=== PATIENT | female | born 1990 | race Hispanic/Latino ===

== ENCOUNTER 2016-11-26 02:48 | Emergency (ER) | payer OTHER ==
[~2016-11-26] VITALS: Ht 165.1 cm; Wt 85.7 kg
[2016-11-26] MEDS ORDERED: birth control PO (03:02)
[2016-11-26 05:07] LABS: BASO % 0.5 % (0.0-1.0); EOS % 0.4 % (0.0-3.0); LARGE UNSTAINED CELL # 0.1 K/mm3 (0.0-0.4); LARGE UNSTAINED CELL % 1.1 % (0.0-4.0); LYMPH % 19.3 % (24.0-44.0); MEAN CORPUSCULAR HEMOGLOBIN 27.5 pg (27.0-33.0); MEAN CORPUSCULAR HGB CONC 33.2 g/dl (32.0-36.5); MEAN CORPUSCULAR VOLUME 82.8 fl (80.0-96.0); MONO # 0.3 K/mm3 (0.0-0.8); MONO % 2.9 % (0.0-5.0); NEUTROPHILS # 7.5 K/mm3 (1.8-7.7); NEUTROPHILS % 75.7 % (36.0-66.0); PLATELET COUNT, AUTOMATED 358 k/mm3 (150-450); RED CELL DISTRIBUTION WIDTH 13.4 % (11.5-14.5); WHITE BLOOD COUNT 9.9 K/mm3 (4.0-10.0)
[2016-11-26 05:16] LABS: INR 0.97
[2016-11-26 05:39] LABS: ANION GAP 10 MEQ/L (8-16); BLOOD UREA NITROGEN 6 MG/DL (7-18); CALCIUM LEVEL 8.5 MG/DL (8.5-10.1); CARBON DIOXIDE LEVEL 26 MEQ/L (21-32); CHLORIDE LEVEL 107 MEQ/L (98-107); GLOMERULAR FILTRATION RATE > 60.0 (>60); GLUCOSE, FASTING 100 MG/DL (70-105); POTASSIUM SERUM 3.5 MEQ/L (3.5-5.1); SODIUM LEVEL 143 MEQ/L (136-145)
[2016-11-26 05:44] LABS: THYROXINE (T4) 16.2 UG/DL (4.5-12.0)
[2016-11-26] MEDS ORDERED: ISOVUE-370 76% 100ML VIAL (Q9967) As Ordered ONE (05:53)
--- NOTE | 2016-11-26 06:40 | REPUSA ---
CLINICAL HISTORY: Pain, exclude PE. TECHNIQUE: Multiple incremental axial, coronal and oblique images are obtained from the thoracic inle t to the upper abdomen. Intravenous contrast material was administered as per pulmonary embolism prot ocol. COMMENTS: There is excellent opacification of pulmonary arterial system without evidence for pulmonary embolism . Aorta is of normal caliber without evidence for dissection or aneurysm. There is no evidence of pleural or parenchymal mass. There are no pleural effusions. There is no evid ence of hilar or mediastinal lymphadenopathy. The heart and great vessels are within normal limits. Images of the upper abdomen demonstrate no evidence of adrenal mass. The bony structures are free of lytic or blastic lesions. IMPRESSION: No evidence for pulmonary embolism. Thank you for your kind referral of this patient.
[2016-11-26 06:51] VITALS: BP 117/56
--- NOTE | 2016-11-26 11:07 | ECGEPIP ---
Stationary ECG Study [facility] - ED Test Date: 2016-11-26 Pat Name: GREGORY LAWSON Department: Room: - Gender: F Web Design Specialist: maria e : 1990 Requested By: OSIRIS DOWNEY Order Number: [id number] Reading MD: Meli Root Measurements Intervals [place] Rate: 108 P: 56 [place]: 129 QRS: 30 QRSD: 94 T: 19 QT: 338 QTc: 454 Interpretive Statements SINUS TACHYCARDIA ABNORMAL RHYTHM ECG SIMILAR 07/25/15 Electronically Signed On 11-26-2016 11:06:46 EDT by Meli Root
== END 2016-11-26 06:51 | disposition home or self-care (01) ==
LOC: M ED 03:57
DX: F41.1 Generalized anxiety disorder (principal); F41.0 Panic disorder [episodic paroxysmal anxiety]; F17.200 Nicotine dependence, unspecified, uncomplicated; Z79.3 Long term (current) use of hormonal contraceptives; R94.31 Abnormal electrocardiogram [ECG] [EKG]
CPT/HCPCS: 36415; 71275; 80048; 82550; 82553; 84436; 84443; 84479; 85025; 85610; 85730; 93005; 99283; Q9967

== ENCOUNTER → 2017-03-10 | Outpatient (CLI) | payer OTHER ==
[~2017-03-10] MED LIST: BENT20TA PO; FLUO20CA19; HYDR50TA70; JULE1TAB; NORCOTAB PO; birth control PO
--- NOTE | 2017-03-10 14:16 | REP ---
LEFT KNEE SERIES, FIVE VIEWS: There is no evidence of an acute fracture, dislocation or intrinsic bone disease. The joint spaces appear unremarkable. There is no evidence of a joint effusion. IMPRESSION: No fracture or dislocation. Signed by Bubba Chandra MD 03/10/2017 05:05 P
== END ==
LOC: M LRY 13:22
PROVIDERS: ATTEND Family Medicine
DX: M25.562 Pain in left knee (principal)

== ENCOUNTER 2017-03-17 18:28 | Emergency (ER) | payer OTHER ==
[~2017-03-17] VITALS: Ht 165.1 cm; Wt 78.6 kg
[~2017-03-17 18:28] MED LIST changes: -BENT20TA PO; -FLUO20CA19; -HYDR50TA70; -JULE1TAB; -NORCOTAB PO
[2017-03-17] MEDS ORDERED: FLUO20CA19 (18:35)
[2017-03-17] MEDS ORDERED: HYDR50TA70 (18:35)
[2017-03-17] MEDS ORDERED: JULE1TAB (18:35)
[2017-03-17] MEDS ORDERED: ONDANSETRON 4MG/2ML VIAL (J2405) IV ONE (19:00)
[2017-03-17] MEDS ORDERED: MORPHINE 2 MG/ML 1ML SYRINGE IV ONE (19:00)
[2017-03-17 19:36] LABS: BASO % 0.2 % (0.0-1.0); EOS # 0.1 K/mm3 (0.0-0.50); EOS % 1.4 % (0.0-3.0); LARGE UNSTAINED CELL # 0.1 K/mm3 (0.0-0.4); LARGE UNSTAINED CELL % 1.1 % (0.0-4.0); LYMPH # 2.4 K/mm3 (1.5-6.5); LYMPH % 22.3 % (24.0-44.0); MEAN CORPUSCULAR HEMOGLOBIN 28.3 pg (27.0-33.0); MEAN CORPUSCULAR HGB CONC 33.5 g/dl (32.0-36.5); MEAN CORPUSCULAR VOLUME 84.4 fl (80.0-96.0); MONO # 0.5 K/mm3 (0.0-0.8); MONO % 4.9 % (0.0-5.0); NEUTROPHILS # 7.2 K/mm3 (1.8-7.7); PLATELET COUNT, AUTOMATED 327 k/mm3 (150-450); RED CELL DISTRIBUTION WIDTH 13.9 % (11.5-14.5); WHITE BLOOD COUNT 10.3 K/mm3 (4.0-10.0)
[2017-03-17 19:49] LABS: ALBUMIN 3.8 GM/DL (3.2-5.2); ALBUMIN/GLOBULIN RATIO 0.88 (1.00-1.93); ALKALINE PHOSPHATASE 82 U/L (45-117); ALT/SGPT 21 U/L (12-78); ANION GAP 8 MEQ/L (8-16); AST/SGOT 15 U/L (15-37); BILIRUBIN,DIRECT < 0.1 MG/DL (0.0-0.2); BILIRUBIN,TOTAL 0.1 MG/DL (0.2-1.0); BLOOD UREA NITROGEN 9 MG/DL (7-18); CALCIUM LEVEL 9.5 MG/DL (8.5-10.1); CARBON DIOXIDE LEVEL 27 MEQ/L (21-32); CHLORIDE LEVEL 105 MEQ/L (98-107); CREATININE FOR GFR 0.69 MG/DL (0.55-1.02); GLOMERULAR FILTRATION RATE > 60.0 (>60); GLUCOSE, FASTING 90 MG/DL (70-105); POTASSIUM SERUM 3.6 MEQ/L (3.5-5.1); SODIUM LEVEL 140 MEQ/L (136-145); TOTAL PROTEIN 8.1 GM/DL (6.4-8.2)
--- NOTE | 2017-03-17 19:50 | REPUSA ---
CLINICAL HISTORY: Abdominal pain. TECHNIQUE: Realtime sonographic images were obtained in multiple projections. COMMENTS: The liver is of normal size, parenchyma demonstrates normal echogenicity. No discrete hepatic mass is seen. There is no intra or extrahepatic biliary ductal dilatation. CBD measures 3 mm. The gallbladder is ma rkedly distended without evidence of calculi. The gallbladder wall is not thickened (2mm) and there i s no pericholecystic fluid. There is no abdominal ascites. The right kidney measures 11.1 cm, free of hydronephrosis. IMPRESSION: Markedly distended gallbladder without cholelithiasis. Otherwise unremarkable study. If clinically warranted consider follow-up with hepatobiliary scan Thank you for your kind referral of this patient.
[2017-03-17] MEDS ORDERED: BENT20TA PO (20:16)
[2017-03-17] MEDS ORDERED: NORCOTAB PO (20:29)
[2017-03-17] MEDS ORDERED: NORCO, ANEXSIA 5/325MG TABLET (HYDROcodone/ACETAMINOPHEN) PO ONE (20:30)
[2017-03-17 20:31] VITALS: BP 163/70
== END 2017-03-17 20:43 | disposition home or self-care (01) ==
LOC: M ED 18:28
DX: K80.70 Calculus of gallbladder and bile duct without cholecystitis without obstruction (principal); Z79.899 Other long term (current) drug therapy
CPT/HCPCS: 76705; 80048; 80076; 81001; 83690; 85025; 96374; 96375; 99283; J2405

== ENCOUNTER 2017-06-17 19:27 | Emergency (ER) | payer OTHER ==
[~2017-06-17] VITALS: Ht 162.6 cm; Wt 78.6 kg
[~2017-06-17 19:27] MED LIST changes: +BENT20TA PO; +FLUO20CA19; +HYDR50TA70; +JULE1TAB; +NORCOTAB PO
[2017-06-17 20:21] LABS: BASO % 0.3 % (0.0-1.0); EOS # 0.1 10^3/uL (0.0-0.50); EOS % 0.8 % (0.0-3.0); IMMATURE GRANULOCYTE % 0.4 % (0-0); LYMPH # 3.3 10^3/uL (1.5-6.5); LYMPH % 25.4 % (24.0-44.0); MEAN CORPUSCULAR HEMOGLOBIN 28.2 pg (27.0-33.0); MEAN CORPUSCULAR HGB CONC 32.7 g/dl (32.0-36.5); MEAN CORPUSCULAR VOLUME 86.4 fl (80.0-96.0); MONO # 0.9 10^3/uL (0.0-0.8); MONO % 6.8 % (0.0-5.0); NEUTROPHILS # 8.7 10^3/uL (1.8-7.7); NEUTROPHILS % 66.3 % (36.0-66.0); PLATELET COUNT, AUTOMATED 313 10^3/uL (150-450); RED CELL DISTRIBUTION WIDTH 13.7 % (11.5-14.5); WHITE BLOOD COUNT 13.1 10^3/uL (4.0-10.0)
[2017-06-17 20:25] LABS: CONTROL LINE UCG INT CTR LINE PRESENT
[2017-06-17 20:47] LABS: ALBUMIN 3.8 GM/DL (3.2-5.2); ALBUMIN/GLOBULIN RATIO 1.15 (1.00-1.93); ALKALINE PHOSPHATASE 68 U/L (45-117); ALT/SGPT 19 U/L (12-78); ANION GAP 7 MEQ/L (8-16); AST/SGOT 10 U/L (7-37); BILIRUBIN,TOTAL 0.1 MG/DL (0.2-1.0); BLOOD UREA NITROGEN 8 MG/DL (7-18); CALCIUM LEVEL 8.8 MG/DL (8.5-10.1); CARBON DIOXIDE LEVEL 27 MEQ/L (21-32); CHLORIDE LEVEL 106 MEQ/L (98-107); CREATININE FOR GFR 0.68 MG/DL (0.55-1.02); GLOMERULAR FILTRATION RATE > 60.0 (>60); GLUCOSE, FASTING 81 MG/DL (70-105); POTASSIUM SERUM 3.9 MEQ/L (3.5-5.1); SODIUM LEVEL 140 MEQ/L (136-145); TOTAL PROTEIN 7.1 GM/DL (6.4-8.2)
[2017-06-17] MEDS ORDERED: ZOFR4TAB3 PO (21:07)
[2017-06-17] MEDS ORDERED: ONDANSETRON 4 MG TAB (S0181) PO ONE (21:15)
[2017-06-17 21:16] VITALS: BP 124/67
== END 2017-06-17 21:39 | disposition home or self-care (01) ==
LOC: M ED 19:27
DX: R11.10 Vomiting, unspecified (principal); E78.5 Hyperlipidemia, unspecified; Z79.899 Other long term (current) drug therapy

== ENCOUNTER → 2017-06-28 | Outpatient (REF) | payer OTHER ==
[~2017-06-28] MED LIST changes: +ZOFR4TAB3 PO
== END ==
LOC: M SFHCLERA 08:09
PROVIDERS: ATTEND Family Medicine
DX: N89.8 Other specified noninflammatory disorders of vagina (principal)

== ENCOUNTER → 2018-01-03 | Outpatient (REF) | payer SELFPAY | LOC: M LAB REF 13:06 | DX: J02.9 Acute pharyngitis, unspecified (principal) ==

== ENCOUNTER → 2019-01-12 | Outpatient (REF) | payer BC ==
[~2019-01-12] MED LIST changes: +HYDR-3715 PO; -NORCOTAB PO; +ZOFR4TAB14 PO; -ZOFR4TAB3 PO
[2019-01-12 13:27] LABS: ALBUMIN 3.4 GM/DL (3.2-5.2); ALT/SGPT 16 U/L (12-78); BILIRUBIN,TOTAL < 0.1 MG/DL (0.2-1.0); BLOOD UREA NITROGEN 13 MG/DL (7-18); CALCIUM LEVEL 9.1 MG/DL (8.5-10.1); CARBON DIOXIDE LEVEL 25 MEQ/L (21-32); CHLORIDE LEVEL 106 MEQ/L (98-107); CHOLESTEROL LEVEL 225 MG/DL (<200); CHOLESTEROL RISK RATIO 3.214 (<5); CREATININE FOR GFR 0.67 MG/DL (0.55-1.30); FREE T4 0.97 NG/DL (0.76-1.46); GLOMERULAR FILTRATION RATE > 60.0 (>60); GLUCOSE, FASTING 83 MG/DL (70-100); HDL CHOLESTEROL 70 MG/DL (>40); LDL CHOLESTEROL 132 MG/DL (<100); NON-HDL-C 155 MG/DL; POTASSIUM SERUM 4.4 MEQ/L (3.5-5.1); SODIUM LEVEL 140 MEQ/L (136-145); TOTAL PROTEIN 7.8 GM/DL (6.4-8.2); TRIGLYCERIDES LEVEL 114 MG/DL (<150)
== END ==
LOC: M SFHCPLAZ 09:41
PROVIDERS: ATTEND Family Medicine
DX: Z13.220 Encounter for screening for lipoid disorders (principal); Z13.1 Encounter for screening for diabetes mellitus; R63.5 Abnormal weight gain

== ENCOUNTER → 2019-08-19 | Outpatient (REF) | payer BC ==
[2019-08-19 14:09] LABS: INFLUENZA A AMPLIFICATION NEGATIVE (NEGATIVE); INFLUENZA B AMPLIFICATION POSITIVE (NEGATIVE)
== END ==
LOC: M LAB REF 13:12
PROVIDERS: ATTEND Physician Assistant Medical
DX: R50.9 Fever, unspecified (principal)

== ENCOUNTER 2019-09-28 05:32 | Emergency (ER) | payer BC ==
[~2019-09-28] VITALS: Ht 162.6 cm; Wt 100.2 kg
[~2019-09-28 05:32] MED LIST changes: -FLUO20CA19; +FLUO20CA22
[2019-09-28] MEDS ORDERED: FLUTISP (05:43)
[2019-09-28] MEDS ORDERED: DESO1TAB26 (05:43)
[2019-09-28 06:43] LABS: BASO % 0.4 % (0.0-1.0); EOS # 0.2 10^3/uL (0.0-0.5); EOS % 2.5 % (0.0-3.0); HEMOGLOBIN 11.5 g/dl (12.0-15.5); LYMPH # 2.9 10^3/uL (1.5-5.0); MEAN CORPUSCULAR HEMOGLOBIN 26.9 pg (27.0-33.0); MEAN CORPUSCULAR HGB CONC 31.9 g/dl (32.0-36.5); MEAN CORPUSCULAR VOLUME 84.1 fl (80.0-96.0); MONO # 0.5 10^3/uL (0.0-0.8); MONO % 6.1 % (0.0-5.0); NEUTROPHILS # 3.9 10^3/uL (1.5-8.5); NEUTROPHILS % 51.7 % (36.0-66.0); PLATELET COUNT, AUTOMATED 369 10^3/uL (150-450); RED BLOOD COUNT 4.28 10^6/uL (4.00-5.40); WHITE BLOOD COUNT 7.5 10^3/uL (4.0-10.0)
[2019-09-28 07:04] LABS: HCG, SERUM QUALITATIVE NEGATIVE (NEGATIVE)
[2019-09-28 07:10] LABS: ALBUMIN 3.3 GM/DL (3.2-5.2); ALT/SGPT 17 U/L (12-78); BILIRUBIN,DIRECT 0.1 MG/DL (0.0-0.2); BILIRUBIN,TOTAL 0.3 MG/DL (0.2-1.0); BLOOD UREA NITROGEN 6 MG/DL (7-18); CALCIUM LEVEL 8.6 MG/DL (8.5-10.1); CARBON DIOXIDE LEVEL 26 MEQ/L (21-32); CHLORIDE LEVEL 109 MEQ/L (98-107); CK-MB VALUE MASS < 1.0 NG/ML (<3.6); CPK CREATINE PHOSPHOKINASE 89 U/L (26-192); CREATININE FOR GFR 0.62 MG/DL (0.55-1.30); FREE T4 1.11 NG/DL (0.76-1.46); GLOMERULAR FILTRATION RATE > 60.0 (>60); GLUCOSE, FASTING 94 MG/DL (70-100); LIPASE 114 U/L (73-393); MB/CK RELATIVE INDEX 1.12 (< OR =4); POTASSIUM SERUM 3.8 MEQ/L (3.5-5.1); SODIUM LEVEL 139 MEQ/L (136-145); TROPONIN I < 0.02 NG/ML (< 0.10)
[2019-09-28 07:45] VITALS: BP 123/56
--- NOTE | 2019-09-28 08:47 | REP ---
Portable chest x-ray: Sitting AP view. History: Chest pain. Findings: The lungs are well inflated and clear. Pleural angles are sharp. Heart size is normal. Pulmonary vasculature is not increased. No significant bony abnormality is seen. Impression: No active disease. Electronically Signed by Gino Ashraf MD 09/28/2019 08:38 A
--- NOTE | 2019-09-29 18:27 | ECGEPIP ---
[facility] - ED Test Date: 2019-09-28 Pat Name: GREGORY LAWSON Department: Room: - Gender: Female New Media Strategist: DENISE : 1990 Requested By: TOSIN Castellanos Order Number: [id number] Reading MD: Meli Root Measurements Intervals [place] Rate: 75 P: 39 [place]: 136 QRS: 29 QRSD: 100 T: 7 QT: 386 QTc: 432 Interpretive Statements SINUS RHYTHM DECREASED RATE 11/26/16 Electronically Signed on 09-29-2019 18:27:35 EST by Meli Root
== END 2019-09-28 07:58 | disposition home or self-care (01) ==
LOC: M ED 05:32
DX: R07.9 Chest pain, unspecified (principal); F41.0 Panic disorder [episodic paroxysmal anxiety]; Z79.899 Other long term (current) drug therapy

== ENCOUNTER 2019-10-05 16:20 | Emergency (ER) | payer BC ==
[~2019-10-05] VITALS: Ht 162.6 cm; Wt 100.1 kg
[~2019-10-05 16:20] MED LIST changes: +DESO1TAB26; +FLUTISP
[2019-10-05] MEDS ORDERED: ONDANSETRON 4 MG ORAL DISINTEGRATING TAB (Q0162 PER 1MG) PO ONE (17:15)
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
[2019-10-05 17:56] VITALS: BP 124/78
== END 2019-10-05 17:57 | disposition home or self-care (01) ==
LOC: M ED 16:20
DX: S00.03XA Contusion of scalp, initial encounter (principal); W22.8XXA Striking against or struck by other objects, initial encounter; Y92.099 Unspecified place in other non-institutional residence as the place of occurrence of the external cause; Y93.9 Activity, unspecified; Y99.9 Unspecified external cause status; R51 Headache; E78.5 Hyperlipidemia, unspecified; F41.0 Panic disorder [episodic paroxysmal anxiety]; Z79.3 Long term (current) use of hormonal contraceptives; Z79.899 Other long term (current) drug therapy
CPT/HCPCS: 70450; 99283; Q0162

== ENCOUNTER → 2019-10-26 | Outpatient (REF) | payer BC ==
[2019-10-26 13:35] LABS: HEMATOCRIT 42.3 % (36.0-47.0); HEMOGLOBIN 13.3 g/dl (12.0-15.5); MEAN CORPUSCULAR HGB CONC 31.4 g/dl (32.0-36.5); PLATELET COUNT, AUTOMATED 429 10^3/uL (150-450); RED BLOOD COUNT 4.92 10^6/uL (4.00-5.40)
[2019-10-26 13:40] LABS: ALBUMIN 3.8 GM/DL (3.2-5.2); ALT/SGPT 21 U/L (12-78); BILIRUBIN,TOTAL 0.3 MG/DL (0.2-1.0); BLOOD UREA NITROGEN 12 MG/DL (7-18); CALCIUM LEVEL 9.2 MG/DL (8.5-10.1); CARBON DIOXIDE LEVEL 27 MEQ/L (21-32); CHLORIDE LEVEL 108 MEQ/L (98-107); CREATININE FOR GFR 0.69 MG/DL (0.55-1.30); FERRITIN 39 NG/ML (8-252); GLOMERULAR FILTRATION RATE > 60.0 (>60); GLUCOSE, FASTING 90 MG/DL (70-100); IRON (FE) 55 UG/DL (50-170); PERCENT SATURATION 12.8 % (13.2-45.0); POTASSIUM SERUM 4.2 MEQ/L (3.5-5.1); SODIUM LEVEL 141 MEQ/L (136-145); TOTAL IRON BINDING CAPACITY 430 UG/DL (250-450); TOTAL PROTEIN 8.1 GM/DL (6.4-8.2)
== END ==
LOC: M SFHCPLAZ 10:33
PROVIDERS: ATTEND Family Medicine
DX: D64.9 Anemia, unspecified (principal); K52.9 Noninfective gastroenteritis and colitis, unspecified

== ENCOUNTER → 2019-11-09 | Outpatient (REF) | payer BC ==
[2019-11-09 15:55] LABS: AMORPHOUS SEDIMENT LARGE (NEGATIVE); APPEARANCE, URINE TURBID (CLEAR); BACTERIA, URINE AUTO NEGATIVE (NEGATIVE); BILIRUBIN, URINE AUTO NEGATIVE (NEGATIVE); BLOOD, URINE BLOOD 1+ (NEGATIVE); COLOR, URINE YELLOW (YELLOW); GLUCOSE, URINE (UA) AUTO NEGATIVE (NEGATIVE); KETONE, URINE AUTO 1+ mg/dL (NEGATIVE); LEUKOCYTE ESTERASE, URINE AUTO NEGATIVE (NEGATIVE); MUCUS, URINE SMALL (NEGATIVE); NITRITE, URINE AUTO NEGATIVE (NEGATIVE); PROTEIN, URINE AUTO 1+ mg/dL (NEGATIVE); RBC, URINE AUTO 0 /HPF (0-3); SQUAMOUS EPITHELIAL CELL UR AU 0 /HPF (0-6); UROBILINOGEN, URINE AUTO 0.2 mg/dL (0.0-2.0); WBC, URINE AUTO 0 /HPF (0-3)
== END ==
LOC: M SFHCPLAZ 15:23
PROVIDERS: ATTEND Family Medicine
DX: R30.0 Dysuria (principal)

== ENCOUNTER → 2020-06-30 | Outpatient (CLI) | payer SELFPAY | LOC: M LABSMTC 12:08 | PROVIDERS: ATTEND Pediatrics | DX: Z20.828 Contact with and (suspected) exposure to other viral communicable diseases (principal) ==

== ENCOUNTER → 2020-08-01 | Outpatient (REF) | payer BC | LOC: M LAB REF 13:15 | PROVIDERS: ATTEND Family Medicine | DX: D49.2 Neoplasm of unspecified behavior of bone, soft tissue, and skin (principal) ==

== ENCOUNTER → 2020-08-10 | Outpatient (CLI) | payer SELFPAY | LOC: M LABSMTC 11:18 | PROVIDERS: ATTEND Pediatrics | DX: Z20.822 Contact with and (suspected) exposure to COVID-19 (principal) ==

== ENCOUNTER → 2020-09-08 | Outpatient (REF) | payer BC ==
[2020-09-08 18:41] LABS: HEMATOCRIT 39.3 % (36.0-47.0); HEMOGLOBIN 12.5 g/dl (12.0-15.5); MEAN CORPUSCULAR HEMOGLOBIN 27.7 pg (27.0-33.0); MEAN CORPUSCULAR HGB CONC 31.8 g/dl (32.0-36.5); MEAN CORPUSCULAR VOLUME 87.1 fl (80.0-96.0); PLATELET COUNT, AUTOMATED 316 10^3/uL (150-450); RED BLOOD COUNT 4.51 10^6/uL (4.00-5.40); WHITE BLOOD COUNT 7.2 10^3/uL (4.0-10.0)
== END ==
LOC: M SFHCPLAZ 14:05
PROVIDERS: ATTEND Family Medicine
DX: Z01.818 Encounter for other preprocedural examination (principal)

== ENCOUNTER → 2020-09-13 | Outpatient (CLI) | payer BC ==
[~2020-09-13] MED LIST changes: +FLON1SPR; +HYDR50TA70 PO; +ISIBLOOM PO; +LAMI1TAB7 PO
== END ==
LOC: M LABSMTC 08:44
PROVIDERS: ATTEND Anesthesiology
DX: Z01.812 Encounter for preprocedural laboratory examination (principal); Z20.822 Contact with and (suspected) exposure to COVID-19

== ENCOUNTER 2020-09-18 09:07 | Day surgery (SDC) | payer BC ==
[~2020-09-18] VITALS: Ht 165.1 cm; Wt 83.0 kg
[~2020-09-18 09:07] MED LIST changes: +LIDOCAINE 1% MDV 20ML VIAL SQ PRN; +LR 1,000 ML IV ONE; +ceFAZolin SOD 1 GM in D5W MINI-BAG PLUS 50 ML IV ONE
--- OUTSIDE RECORDS SUMMARY | 2020-09-18 09:13 | CCD ---
Author Author [facility] Organization [facility] Address Unknown Phone Unavailable Care Team Providers Care Bottom Man Name Role Phone Phoebe Schmidt Unavailable PROBLEMS Type Condition ICD9-CM Code [id number] Code Onset Dates Condition S tatus W/U Status Risk SNOMED Code Notes Problem Irritable bowel syndrome with diarrhea K58.0 A ctive confirmed 490831146 Problem Non-seasonal allergic rhinitis, unspecified trigger J30.89 Active confirmed 93124778 Problem Intermittent explosive disorder F63.81 Active confi rmed 02140644 Problem Anxiety F41.9 Active confirmed 38038696 ALLERGIES Allergen (clinical drug ingredient) Drug/Non Drug Allergy do cumented on EMR Reaction Allergy Type Onset Date Status Seasonale watery eyes sneezing nasel congestion Drug Adolfo rgy Active ENCOUNTERS from 1990 to 2020-09-10 Encounter Location Date Provider Diagnosis [address] [address] Aug, Phoebe Schmidt Pre-op evaluation Z01.818 ; Hypertrophy of breast N62 ; Anxiety F41.9 and Non-seasonal allergic rhinitis, unspecified trigger J30.89 IMMUNIZATIONS No Information SOCIAL HISTORY Tobacco Use: Social History Observation Description Date Details (start date - stop date) Never Smoker Sex Assigned At : Social History Observation Description Sex Assigned At Unknown Audit Question Answer Notes Total Score: 1 Interpretation: Alcohol Education Domestic Violence: Question Answer Notes Status: Single Sexual Hx: Question Answer Notes Had sex in the last 12 months (vaginal, oral, or anal)? Yes LMP: 12/17/2018 Have you ever had an STD? No with Women only Use protection? No Drug and Alcohol Question Answer Notes Total Score: 0 Interpretation: No problems reported Tobacco Use: Question Answer Notes Are you a: never smoker REASON FOR REFERRAL No Information VITAL SIGNS Weight 183 lbs Aug, Height 65 in Aug, BMI 30.45 kg/m2 Aug, Heart Rate 118 /min Aug, Respiratory Rate 20 /min Aug, Temperature 96.8 degrees Fahrenheit Aug, Oximetry 99 Aug, Blood pressure systolic 120 mm Hg Aug, Blood pressure diastolic 70 mm Hg Aug, MEDICATIONS Medication SIG (Take, Route, Frequency, Duration) Notes Start Da te End Date Status Cetirizine HCl 10 MG 1 tablet Orally Once a day May, Active Emoquette 0.15-30 MG-MCG 1 tablet Orally Once a day Active Fluticasone Propionate 50 MCG/ACT 1 spray in each nostril Nasall y Once a day Active Zaditor 0.025 % 1 drop into affected eye Ophthalmic Twice a day May, Active Fluconazole 150 MG 1 tablet Orally for 1 days Jul, Not-Taking Lamictal 100 MG 1 tablet Orally bid Active HydrOXYzine HCl 50 MG 1 tablet as needed Orally every 6 hrs Oct, Active PROCEDURES No Information RESULTS Component Value Reference Range CBC - Complete Blood Count Reviewed date:09/09/2020 07:10:25 Interpretation: Performing Lab:[facility] [address] [facility] [address] , ,[place] [address] WHITE BLOOD COUNT 7.2 4.0-10.0 RED BLOOD COUNT 4.51 4.00-5.40 HEMOGLOBIN 12.5 12.0-15.5 HEMATOCRIT 39.3 36.0-47.0 MEAN CORPUSCULAR VOLUME 87.1 80.0-96.0 MEAN CORPUSCULAR HEMOGLOBIN 27.7 27.0-33.0 MEAN CORPUSCULAR HGB CONC 31.8 32.0-36.5 RED CELL DISTRIBUTION WIDTH 13.4 11.5-14.5 PLATELET COUNT, AUTOMATED 316 150-450 REASON FOR VISIT Preop clearance for breast reduction at [facility] by Dr. Valdovinos on 09/18/2020; surgeon's fax [phone], diagnosis code N62 MEDICAL (GENERAL) HISTORY Type Description Date Medical History Anxiety, intermittent explosive disorder - [facility] Medical History Environmental allergies Medical History PMS with diarrhea and vomiting - on OCPs Surgical History Appendectomy Surgical History Tonsillectomy with adenoidectomy Hospitalization History surgery related Goals Section No Information Health Concerns No Information MEDICAL EQUIPMENT No Information MENTAL STATUS No Information FUNCTIONAL STATUS No Information ASSESSMENTS Encounter Date Diagnosis Assessment Notes Treatment Notes Treatm ent Clinical Notes Aug, Pre-op evaluation (ICD-10 - Z01.818) I discussed the risks vs. benefits of surgery with the patient in generic terms. I feel that the patient is at low risk for perioperative complications. The patient knows that there is always some risk with surgery and that each individual has to make a decision regarding whether the benefits of surgery outweigh the risks in order to proceed. I advised the patient to direct further questions regarding the specifics of the proposed surgical procedure and specific risks to the surgeon. At this time I feel that the patient's acute and chronic medical conditions are sufficiently optimized to proceed with surgery. - Continue all medications in the perioperative period; I counseled the patient that OCPs increase risk of DVT after surgery and she should get up and walk around her house every hour while awake to decrease risk of DVT. Aug, Hypertrophy of breast (ICD-10 - N62) Surgery is planned. Aug, Anxiety (ICD-10 - F41.9) Aug, Non-seasonal allergic rhinit is, unspecified trigger (ICD-10 - J30.89) PLAN OF TREATMENT Medication Medication Name Sig Start Date Stop Date Zaditor 0.025 % 1 drop into affected eye Ophthalmic Twice a day May, Cetirizine HCl 10 MG 1 tablet Orally Once a day May, Fluticasone Propionate 50 MCG/ACT 1 spray in each nostril Nasall y Once a day Lamictal 100 MG 1 tablet Orally bid HydrOXYzine HCl 50 MG 1 tablet as needed Orally every 6 hrs 2019 Emoquette 0.15-30 MG-MCG 1 tablet Orally Once a day Treatment Notes Assessment Notes Clinical Notes Pre-op evaluation I discussed the risk s vs. benefits of surgery with the patient in generic terms. I feel that the patient is at low risk for perioperative complications. The patient knows that there is always some risk with surgery and that each individual has to make a decision regarding whether the benefits of surgery outweigh the risks in order to proceed. I advised the patient to direct further questions regarding the specifics of the proposed surgical procedure and specific risks to the surgeon. At this time I feel that the patient's acute and chronic medical conditions are sufficiently optimized to proceed with surgery.- Continue all medications in the perioperative period; I counseled the patient that OCPs increase risk of DVT after surgery and she should get up and walk around her house every hour while awake to decrease risk of DVT. Hypertrophy of breast Surgery is planned . Next Appt Details As scheduled 10/2020 Reason: Provider Name:Phoebe Schmidt, 2020-11-12 10:30:00 AM, [facility] [place], [address], Insurance Providers Payer Name Payer Address Payer Phone Insured Name Patient Relati onship to Insured Coverage Start Date Coverage End Date BCBS YANA GARCIA PPO [id number] [facility] [address] [place] [address] GREGORY LAWSON
--- OUTSIDE RECORDS SUMMARY | 2020-09-18 09:13 | CCD | Continuity of Care Document ---
Author Author Landen JOSEPH DO Organization Unknown Address [address] [place] [address] Phone [phone] Care Team Providers Care Inspector Experimental Assembly Name Role Phone Phoebe Schmidt M.D. [facility] [phone] Problems Description No Information Available Social History Type Date Description Comments Sex Unknown ETOH Use Rarely Tobacco Use Start: Unknown Denies Smoking Smoking Status Reviewed: 02/07/19 Denies Smoking Allergies, Adverse Reactions, Alerts Description No Known Drug Allergies Medications Active Medications SIG Qnty Indications Ordering Provide r Date Emoquette 0.15-30mg-mcg Tablets 1 by mouth every day Unknown Fluticasone Propionate 50mcg/Act Suspension 2 sprays to each nostril daily Unknown Hydroxyzine HCL Unknown 0 Lamictal 100mg Tablets 1 po b id Unknown Immunizations Description No Information Available Vital Signs Date Vital Result Comment 09/08/2020 3:26pm BP Systolic 118 mmHg BP Diastolic 84 mmHg Heart Rate 80 /min Respiratory Rate 16 /min Height 64.5 inches 5'4.50" Weight 184.00 lb BMI (Body Mass Index) 31.1 kg/m2 [place] Body Weight 120 lb Weight 83.462 kg BSA (Body Surface Area) 1.90 m2 04/02/2020 1:03pm BP Systolic 128 mmHg BP Diastolic 84 mmHg Heart Rate 76 /min Respiratory Rate 16 /min Body Temperature 98.0 F Height 64.5 inches 5'4.50" Weight 189.00 lb BMI (Body Mass Index) 31.9 kg/m2 [place] Body Weight 120 lb Weight 85.730 kg BSA (Body Surface Area) 1.92 m2 Results Description No Information Available Procedures Description No Information Available Medical Devices Description No Information Available Encounters Type Date Location Provider Dx Diagnosis Office Visit 04/02/2020 1:00p [facility]astic Surgery Sapphire Joseph DO N62 Hypertrophy of breast N64.81 Ptosis of breast Assessments Date Code Description Provider 04/02/2020 N62 Hypertrophy of breast Sapphire voss DO 04/02/2020 N64.81 Ptosis of breast Sapphire Joseph DO Plan of Treatment Future Appointment(s):* 09/18/2020 10:00 am - Sapphire Joseph DO at [facility] Plastic [facility] * 09/22/2020 8:30 am - Sapphire Joseph DO at [facility] Functional Status Description No Information Available Mental Status Description No Information Available Referrals Description No Information Available
--- OUTSIDE RECORDS SUMMARY | 2020-09-18 09:13 | CCD ---
Author Author [facility] Organization [facility] Address Unknown Phone Unavailable Care Team Providers Care Medical Dir Name Role Phone Phoebe Schmidt Unavailable PROBLEMS Type Condition ICD9-CM Code [id number] Code Onset Dates Condition S tatus SNOMED Code Notes Problem Irritable bowel syndrome with diarrhea K58.0 A ctive 805651546 Problem Non-seasonal allergic rhinitis, unspecified trigger J30.89 Active 20858048 Problem Other chronic pain G89.29 Active 32581659 Problem Intermittent explosive disorder F63.81 Active 30033083 Problem Seasonal allergies J30.2 Active 037886293 Problem Anxiety F41.9 Active 23168515 ALLERGIES Allergen (clinical drug ingredient) Drug/Non Drug Allergy do cumented on EMR Reaction Allergy Type Onset Date Status Seasonale watery eyes sneezing nasel congestion Drug Adolfo rgy Active ENCOUNTERS from 1990 to 2020-07-16 Encounter Location Date Provider Diagnosis [address] [address] Jun, Phoebe Schmidt Change in skin mole D22.9 IMMUNIZATIONS No Information SOCIAL HISTORY Tobacco Use: [...] FOR REFERRAL No Information VITAL SIGNS Weight 187 lbs Jun, Height 65 in Jun, BMI 31.12 kg/m2 Jun, Heart Rate 109 /min Jun, Respiratory Rate 20 /min Jun, Temperature 98 degrees Fahrenheit Jun, Oximetry 98 Jun, Blood pressure systolic 120 mm Hg Jun, Blood pressure diastolic 70 mm Hg Jun, MEDICATIONS Medication SIG (Take, Route, Frequency, Duration) Notes Start Da te End Date Status Zaditor 0.025 % 1 drop into affected eye Ophthalmic Twice a day May, Active Fluticasone Propionate 50 MCG/ACT 1 spray in each nostril Nasall y Once a day Active HydrOXYzine HCl 50 MG 1 tablet as needed Orally every 6 hrs Oct, Active Cetirizine HCl 10 MG 1 tablet Orally Once a day for 30 day(s) May, Active Emoquette 0.15-30 MG-MCG 1 tablet Orally Once a day Active Lamictal 150 MG 1 tablet Orally Once a day Active PROCEDURES No Information RESULTS No Results REASON FOR VISIT mole MEDICAL (GENERAL) HISTORY Type Description Date Medical History Anxiety, intermittent explosive disorder - [facility] Medical History Environmental allergies Medical History PMS with diarrhea and vomiting - on OCPs Surgical History Appendectomy Surgical History Tonsillectomy with adenoidectomy Hospitalization History surgery related Goals Section No Information Health Concerns No Information MEDICAL EQUIPMENT No Information MENTAL STATUS No Information FUNCTIONAL STATUS No Information ASSESSMENTS Encounter Date Diagnosis Assessment Notes Treatment Notes Treatm ent Clinical Notes Jun, Change in skin mole (ICD-10 - D22.9) Due to growth and associated itching, will schedule for shave biopsy/removal. PLAN OF TREATMENT Treatment Notes Assessment Notes Clinical Notes Change in skin mole Due to growth and as sociated itching, will schedule for shave biopsy/removal. Next Appt Details 08/01/2019 Reason:shave biopsy Provider Name:Phoebe Schmidt, 2020-08-01 10:00:00 AM, [address] [place] [address], [phone], Provider Name:Phoebe Schmidt, 2020-11-12 10:30:00 AM, [facility] [place], [address], Follow Up:08/01/2019ave biopsy Insurance Providers Payer Name Payer Address Payer Phone Insured Name Patient Relati onship to Insured Coverage Start Date Coverage End Date BCBS [place] [facility] [id number] [facility] [place] [facility] [place] [address] GREGORY LAWSON
--- OUTSIDE RECORDS SUMMARY | 2020-09-18 09:13 | CCD ---
Author Author [facility] Organization [facility] Address Unknown Phone Unavailable Care Team Providers Care Dtp Operator Name Role Phone Phoebe Schmidt Unavailable PROBLEMS Type Condition ICD9-CM Code PET34-BF Code Onset Dates Condition S tatus SNOMED Code Notes Problem Irritable bowel syndrome with diarrhea K58.0 A ctive 417484377 Problem Non-seasonal allergic rhinitis, unspecified trigger J30.89 Active 44895901 Problem Other chronic pain G89.29 Active 12372679 Problem Intermittent explosive disorder F63.81 Active 74790274 Problem Seasonal allergies J30.2 Active 972443480 Problem Anxiety F41.9 Active 58719247 ALLERGIES Allergen (clinical drug ingredient) Drug/Non Drug Allergy do cumented on EMR Reaction Allergy Type Onset Date Status Seasonale watery eyes sneezing nasel congestion Drug Adolfo rgy Active ENCOUNTERS from 1990 to 2020-08-04 Encounter Location Date Provider Diagnosis [address] [address] Jul, Phoebe Schmidt Abnormal skin growth D49.2 and Anxiety F 41.9 IMMUNIZATIONS No Information SOCIAL HISTORY Tobacco Use: [...] FOR REFERRAL No Information VITAL SIGNS Weight 189 lbs Jul, Height 65 in Jul, BMI 31.45 kg/m2 Jul, Heart Rate 101 /min Jul, Respiratory Rate 20 /min Jul, Temperature 99 degrees Fahrenheit Jul, Oximetry 100 Jul, Blood pressure systolic 112 mm Hg Jul, Blood pressure diastolic 89 mm Hg Jul, MEDICATIONS Medication SIG (Take, Route, Frequency, Duration) Notes Start Da te End Date Status Lamictal 150 MG 1 tablet Orally Once a day Active Cetirizine HCl 10 MG 1 tablet Orally Once a day for 30 day(s) May, Active Emoquette 0.15-30 MG-MCG 1 tablet Orally Once a day Active Fluconazole 150 MG 1 tablet Orally for 1 days Jul, Active Fluticasone Propionate 50 MCG/ACT 1 spray in each nostril Nasall y Once a day Active HydrOXYzine HCl 50 MG 1 tablet as needed Orally every 6 hrs for 30 Days Oct, Active Zaditor 0.025 % 1 drop into affected eye Ophthalmic Twice a day May, Active PROCEDURES No Information RESULTS No Results REASON FOR VISIT Shave biopsy R abd MEDICAL (GENERAL) HISTORY Type Description Date Medical History Anxiety, intermittent explosive disorder - [facility] Medical History Environmental allergies Medical History PMS with diarrhea and vomiting - on OCPs Surgical History Appendectomy Surgical History Tonsillectomy with adenoidectomy Hospitalization History surgery related Goals Section No Information Health Concerns No Information MEDICAL EQUIPMENT No Information MENTAL STATUS No Information FUNCTIONAL STATUS No Information ASSESSMENTS Encounter Date Diagnosis Assessment Notes Treatment Notes Treatm ent Clinical Notes Jul, Abnormal skin growth (ICD-10 - D49.2) See procedure note Jul, Anxiety (ICD-10 - F41.9) PLAN OF TREATMENT Medication Medication Name Sig Start Date Stop Date HydrOXYzine HCl 50 MG 1 tablet as needed Orally every 6 hrs for 30 Days Oct, Fluconazole 150 MG 1 tablet Orally for 1 days Jul, Treatment Notes Assessment Notes Clinical Notes Abnormal skin growth See procedure note Next Appt Details as sched 10/2020 Reason: Provider Name:Phoebe Schmidt, 2020-11-12 10:30:00 AM, [address] [place], [address], Insurance Providers Payer Name Payer Address Payer Phone Insured Name Patient Relati onship to Insured Coverage Start Date Coverage End Date TICO GARCIA [facility] [id number] [facility] [place] [address] GREGORY LAWSON
--- OUTSIDE RECORDS SUMMARY | 2020-09-18 09:13 | CCD ---
Author Author [facility] Organization [facility] Address Unknown Phone Unavailable Care Team Providers Care Manager Supply Chain Name Role Phone JAKE, E ELDA DO Unavailable Unavailable JAKE, E ELDA DO Unavailable Unavailable JAKE, E ELDA DO Unavailable Unavailable JAKE, E ELDA DO Unavailable Unavailable JAKE, E ELDA DO Unavailable Unavailable JAKE, E ELDA DO Unavailable Unavailable JAKE, E ELDA DO Unavailable Unavailable JAKE, E ELAD DO Unavailable Unavailable JAKE, E ELDA DO Unavailable Unavailable JAKE, E ELDA DO Unavailable Unavailable JAKE, E ELDA DO Unavailable Unavailable JAKE, E ELDA DO Unavailable Unavailable JAKE, E ELDA DO Unavailable Unavailable JAKE, E ELDA DO Unavailable Unavailable JAKE, E ELDA DO Unavailable Unavailable JAKE, E ELDA DO Unavailable Unavailable JAKE, E ELDA DO Unavailable Unavailable JAKE, E ELDA DO Unavailable Unavailable JAKE, E ELDA DO Unavailable Unavailable JAKE, E ELDA DO Unavailable Unavailable JAKE, E ELDA DO Unavailable Unavailable Shaun, Beverly Tejada MD Unavailable Unavailable Shaun, Beverly Tejada MD Unavailable Unavailable Shaun, Beverly Tejada MD Unavailable Unavailable Shaun, Beverly Tejada MD Unavailable Unavailable Shaun, Beverly Tejada MD Unavailable Unavailable Shaun, Beverly Tejada MD Unavailable Unavailable Shaun, Beverly Tejada MD Unavailable Unavailable Shaun, Beverly Tejada MD Unavailable Unavailable Shaun, Beverly Tejada MD Unavailable Unavailable Shaun, Beverly Tejada MD Unavailable Unavailable Shaun, Beverly Tejada MD Unavailable Unavailable Shaun, Beverly Tejada MD Unavailable Unavailable Shaun, Beverly Tejada MD Unavailable Unavailable Shaun, Beverly Tejada MD Unavailable Unavailable Shaun, Beverly Tejada MD Unavailable Unavailable Shaun, Beverly Tejada MD Unavailable Unavailable Shaun, Beverly Tejada MD Unavailable Unavailable Shaun, Beverly Tejada MD Unavailable Unavailable Shaun, Beverly Tejada MD Unavailable Unavailable Shaun, Beverly Tejada MD Unavailable Unavailable Shaun, Beverly Tejada MD Unavailable Unavailable Shaun, Beverly Tejada MD Unavailable Unavailable Shaun, Beverly Tejada MD Unavailable Unavailable Shaun, Beverly Tejada MD Unavailable Unavailable Shaun, Beverly Tejada MD Unavailable Unavailable Shaun, Beverly Tejada MD Unavailable Unavailable Shaun, Beverly Tejada MD Unavailable Unavailable Shaun, Beverly Tejada MD Unavailable Unavailable Shaun, Beverly Tejada MD Unavailable Unavailable Shaun, Beverly Tejada MD Unavailable Unavailable Shaun, Beverly Tejada MD Unavailable Unavailable Shaun, Beverly Tejada MD Unavailable Unavailable Shaun, Beverly Tejada MD Unavailable Unavailable Shaun, Beverly Tejada MD Unavailable Unavailable Shaun, Beverly Tejada MD Unavailable Unavailable Shaun, Beverly Tejada MD Unavailable Unavailable Shaun, Beverly Teajda MD Unavailable Unavailable Shaun, Beverly Tejada MD Unavailable Unavailable Shaun, Beverly Tejada MD Unavailable Unavailable Shaun, Beverly Tejada MD Unavailable Unavailable Shaun, Beverly Tejada MD Unavailable Unavailable Shaun, Beverly Tejada MD Unavailable Unavailable Shaun, Beverly Tejada MD Unavailable Unavailable Shaun, Beverly Tejada MD Unavailable Unavailable Shaun, Beverly Tejada MD Unavailable Unavailable Shaun, Beverly Tejada MD Unavailable Unavailable Shaun, Beverly Tejada MD Unavailable Unavailable Shaun, Beverly Tejada MD Unavailable Unavailable Shaun, Beverly Tejada MD Unavailable Unavailable Shaun, Beverly Tejada MD Unavailable Unavailable Shaun, Beverly Tejada MD Unavailable Unavailable Shaun, Beverly Tejada MD Unavailable Unavailable Shaun, Beverly Tejada MD Unavailable Unavailable Shaun, Beverly Tejada MD Unavailable Unavailable Shaun, Beverly Tejada MD Unavailable Unavailable Shaun, Beverly Tejada MD Unavailable Unavailable Shaun, Beverly Tejada MD Unavailable Unavailable Shaun, Beverly Tejada MD Unavailable Unavailable Shaun, Beverly Tejada MD Unavailable Unavailable Shaun, Beverly Tejada MD Unavailable Unavailable Shanu, Beverly Tejada MD Unavailable Unavailable Shaun, A Mallory MD Unavailable Unavailable Shaun, A Mallory MD Unavailable Unavailable Shaun, A Mallory MD Unavailable Unavailable Shaun, A Mallory MD Unavailable Unavailable Shaun, A Mallory MD Unavailable Unavailable Shaun, A Mallory MD Unavailable Unavailable Shaun, A Mallory MD Unavailable Unavailable Shaun, A Mallory MD Unavailable Unavailable Shaun, A Mallory MD Unavailable Unavailable Shaun, A Mallory MD Unavailable Unavailable Shaun, A Mallory MD Unavailable Unavailable Shaun, A Mallory MD Unavailable Unavailable Shaun, A Mallory MD Unavailable Unavailable Shaun, A Mallory MD Unavailable Unavailable Pedro GARCIA, Kirsten Unavailable Unavailable Pedro GARCIA, Kirsten Unavailable Unavailable Re-disclosure Warning The records that you are about to access may contain information from federally-assisted alcohol or drug abuse programs. If such information is present, then the following federally mandated warning applies: This information has been disclosed to you from records protected by federal confidentiality rules (42 CFR part 2). The federal rules prohibit you from making any further disclosure of this information unless further disclosure is expressly permitted by the written consent of the person to whom it pertains or as otherwise permitted by 42 CFR part 2. A general authorization for the release of medical or other information is NOT sufficient for this purpose. The Federal rules restrict any use of the information to criminally investigate or prosecute any alcohol or drug abuse patient.The records that you are about to access may contain highly sensitive health information, the redisclosure of which is protected by Article 27-F of the [facility] Public Health law. If you continue you may have access to information: Regarding HIV / AIDS; Provided by facilities licensed or operated by the [facility] Office of Mental Health; or Provided by the [facility] Office for People With Developmental Disabilities. If such information is present, then the following [facility] mandated warning applies: This information has been disclosed to you from confidential records which are protected by state law. State law prohibits you from making any further disclosure of this information without the specific written consent of the person to whom it pertains, or as otherwise permitted by law. Any unauthorized further disclosure in violation of state law may result in a fine or retirement sentence or both. A general authorization for the release of medical or other information is NOT sufficient authorization for further disc losure. Allergies and Adverse Reactions Type Description Substance Reaction Status Data Source(s ) Seasonale Seasonale Seasonale watery eyes sneezing nasel congestio n Active eCW1 ([facility]) Seasonale Seasonale Seasonale watery eyes sneezing nasel congestio n Active eCW1 ([facility]) Family History Family Member Name Family Member Gender Family Member Status Date o f Status Description Data Source(s) Unknown Male Diagnosis 04/12/2016 12:00:00 AM EDT [facility] ([facility]) Unknown Male Diagnosis 04/12/2016 12:00:00 AM EDT [facility] ([facility]) Unknown Unknown Problem MEDENT ([facility], ) Encounters Encounter Providers Location Date Indications Data Source(s ) [place] [address] [facility] [address] 09/08/2020 12:00:00 AM EST eCW1 ([facility]) [place] [address] [facility] [address] [place] [address] 08/04/2020 12:00:00 AM EST eCW1 ([facility]) [place] [address] [facility] [address] 08/01/2020 12:00:00 AM EST eCW1 ([facility]) [place] [address] [facility] [address] [place] [address] 07/15/2020 12:00:00 AM EST eCW1 ([facility]) [place] [address] [facility] [place] [address] 07/15/2020 12:00:00 AM EST eCW1 ([facility]) OutpatientPREV VISIT, EST, AGE 18-39 Attender: Kirsten GARCIA PPNCSHELDON Shelton 05/30/2020 09:30:00 AM EST - 05/30/2020 09:30:00 AM ES T Encounter for surveillance of contraceptive pillsEncntr for rubber trimmer exam (general) (routine) w/o abn findingsEncounter for oth general cnsl and advice on contraceptionOther sex counselingHuman immunodeficiency virus [HIV] counseling NextGen ([facility]) Encounter for surveillance of contracept margaret pills Encntr for rubber trimmer exam (general) (routine) w/o abn findings Encounter for oth general cnsl and advic e on contraception Other sex counseling Human immunodeficiency virus [HIV] couns eling Attender: Mallory Dunn MD [facility] 06/2020 11:43:00 AM EDT - 05/05/2020 11:43:00 AM EDT NextGen ([facility]) Outpatient Attender: ELDA Vazquez/Paige/Zack/Caitlin garza 04/02/2020 01:00:00 PM EDT MEDENT ([facility] [address] [place] [address] 12/24/2019 12:00:00 AM EDT eCW1 ([facility]) [address] [address] 11/12/2019 12:00:00 AM EDT eCW1 ([facility]) [address] [address] 11/09/2019 12:00:00 AM EDT eCW1 ([facility]) [address] [place] [address] 11/08/2019 12:00:00 AM EDT eCW1 ([facility]) [address] [place] [address] 10/29/2019 12:00:00 AM EDT eCW1 ([facility]) [address] [address] 10/26/2019 12:00:00 AM EDT eCW1 ([facility]) Outpatient 10/25/2019 06:22:00 AM EDT [facility] [address] [address] 10/24/2019 12:00:00 AM EDT eCW1 ([facility]) Outpatient 10/01/2019 02:37:00 PM EDT [facility] Medications Medication Brand Name Start Date Product Form Dose Route Admi nistrative Instructions Pharmacy Instructions Status Indications Reaction Description Data Source(s) 100 mg 08/27/2020 12:00:00 AM EST tablet 60 TAKE 1 TABLET BY MOUTH TWICE A DAY FOR MOOD STABILIZATION TAKE 1 TABLET BY MOUTH TWICE A DAY FOR M OOD STABILIZATION SOLD: 08/27/2020 [facility] Fluconazole 150 MG Oral Tablet Fluconazole 150 MG 08/04/2020 12:00: 00 AM EST 1.0 {tablet} active Fluconazole 150 MG eCW1 ([facility]) Fluconazole 150 MG Oral Tablet Fluconazole 150 MG 08/04/2020 12:00: 00 AM EST 1.0 {tablet} active Fluconazole 150 MG eCW1 ([facility]) 150 mg 08/04/2020 12:00:00 AM EST tablet 1 TAKE ONE TABLET BY MOUTH FOR 1 DAY TAKE ONE TABLET BY MOUTH FOR 1 DAY SOLD: 08/05/2020 [facility] Fluconazole 150 MG Oral Tablet Fluconazole 150 MG 08/04/2020 12:00: 00 AM EST 1.0 {tablet} suspended Fluconazole 150 M G eCW1 ([facility]) 50 mg 08/02/2020 12:00:00 AM EST tablet 120 TAKE ONE TABLET BY MOUTH EVERY 6 HOURS NEEDED TAKE ONE TABLET BY MOUTH EVERY 6 HOURS NEEDED SOLD: 08/05/2020 [facility] 25 mg 06/18/2020 12:00:00 AM EST tablet 60 TAKE 2 TABLETS BY MOUTH ONCE A DAY TAKE 2 TABLETS BY MOUTH ONCE A DAY SOLD: 07/28/2020 [facility] 100 mg 06/18/2020 12:00:00 AM EST tablet 30 TAKE 1 TABLET BY MOUTH ONCE A DAY FOR MOOD STABILIZATION TAKE 1 TABLET BY MOUTH ONCE A DAY FOR MO OD STABILIZATION SOLD: 06/21/2020 [facility] 100 mg 06/18/2020 12:00:00 AM EST tablet 30 TAKE 1 TABLET BY MOUTH ONCE A DAY FOR MOOD STABILIZATION TAKE 1 TABLET BY MOUTH ONCE A DAY FOR MO OD STABILIZATION SOLD: 07/28/2020 [facility] 25 mg 06/18/2020 12:00:00 AM EST tablet 60 TAKE 2 TABLETS BY MOUTH ONCE A DAY TAKE 2 TABLETS BY MOUTH ONCE A DAY SOLD: 06/21/2020 [facility] Ketotifen 0.25 MG/ML Ophthalmic Solution [Zaditor] Zad itor 0.025 % Zaditor 0.025 % 06/17/2020 12:00:00 AM EST 1.0 {drop_into_affected_eye} active Zaditor 0.025 % eCW1 ([facility]) Ketotifen 0.25 MG/ML Ophthalmic Solution [Zaditor] Zad itor 0.025 % Zaditor 0.025 % 06/17/2020 12:00:00 AM EST 1.0 {drop_into_affected_eye} active Zaditor 0.025 % eCW1 ([facility]) cetirizine hydrochloride 10 MG Oral Tablet Cetirizine HCl 10 MG Cetirizine HCl 10 MG 06/17/2020 12:00:00 AM EST 1.0 {tablet} activ e Cetirizine HCl 10 MG eCW1 ([facility]) cetirizine hydrochloride 10 MG Oral Tablet Cetirizine HCl 10 MG Cetirizine HCl 10 MG 06/17/2020 12:00:00 AM EST 1.0 {tablet} activ e Cetirizine HCl 10 MG eCW1 ([facility]) cetirizine hydrochloride 10 MG Oral Tablet Cetirizine HCl 10 MG Cetirizine HCl 10 MG 06/17/2020 12:00:00 AM EST 1.0 {tablet} activ e Cetirizine HCl 10 MG eCW1 ([facility]) Ketotifen 0.25 MG/ML Ophthalmic Solution [Zaditor] Zad itor 0.025 % Zaditor 0.025 % 06/17/2020 12:00:00 AM EST 1.0 {drop_into_affected_eye} active Zaditor 0.025 % eCW1 ([facility]) Ketotifen 0.25 MG/ML Ophthalmic Solution [Zaditor] Zad itor 0.025 % Zaditor 0.025 % 06/17/2020 12:00:00 AM EST 1.0 {drop_into_affected_eye} active Zaditor 0.025 % eCW1 ([facility]) cetirizine hydrochloride 10 MG Oral Tablet Cetirizine HCl 10 MG Cetirizine HCl 10 MG 06/17/2020 12:00:00 AM EST 1.0 {tablet} activ e Cetirizine HCl 10 MG eCW1 ([facility]) Ketotifen 0.25 MG/ML Ophthalmic Solution [Zaditor] Zad itor 0.025 % Zaditor 0.025 % 06/17/2020 12:00:00 AM EST 1.0 {drop_into_affected_eye} active Zaditor 0.025 % eCW1 ([facility]) cetirizine hydrochloride 10 MG Oral Tablet Cetirizine HCl 10 MG Cetirizine HCl 10 MG 06/17/2020 12:00:00 AM EST 1.0 {tablet} activ e Cetirizine HCl 10 MG eCW1 ([facility]) Isibloom 28 Day Pack 0.15-0.03 mg DESOGESTREL-ETHINYL ESTRAD IOL 05/31/2020 12:00:00 AM EST tablet 84 TAKE ONE TABLET BY MOUTH EVERY DAY TAKE ONE TABLET BY MOUTH EVERY DAY SOLD: 08/27/2020 [facility] Isibloom 28 Day Pack 0.15-0.03 mg DESOGESTREL-ETHINYL ESTRAD IOL 05/31/2020 12:00:00 AM EST tablet 84 TAKE ONE TABLET BY MOUTH EVERY DAY TAKE ONE TABLET BY MOUTH EVERY DAY SOLD: 06/06/2020 [facility] Emoquette 0.15 mg-0.03 mg tablet {21 (desogestrel 0.15 MG / ethinyl estradiol 0.03 MG Oral Tablet) / 7 (inert ingredients 1 MG Oral Tablet) } Pack 05/30/2020 12:00:00 AM EST completed Emoqu ette 28 Day Pack NextGen ([facility]) Medication administered onsite Emoquette 0.15 mg-0.03 mg tablet {21 (desogestrel 0.15 MG / ethinyl estradiol 0.03 MG Oral Tablet) / 7 (inert ingredients 1 MG Oral Tablet) } Pack 05/30/2020 12:00:00 AM EST active Emoquett e 28 Day Pack NextGen ([facility]) Isibloom 28 Day Pack 0.15-0.03 mg DESOGESTREL-ETHINYL ESTRAD IOL 05/06/2020 12:00:00 AM EDT tablet 28 TAKE ONE TABLET BY MOUTH EVERY DAY TAKE ONE TABLET BY MOUTH EVERY DAY SOLD: 05/10/2020 [facility] Emoquette 0.15 mg-0.03 mg tablet {21 (desogestrel 0.15 MG / ethinyl estradiol 0.03 MG Oral Tablet) / 7 (inert ingredients 1 MG Oral Tablet) } Pack 05/05/2020 12:00:00 AM EDT completed Emoqu ette 28 Day Pack NextGen ([facility]) 100 mg 04/24/2020 12:00:00 AM EDT tablet 30 TAKE ONE TABLET BY MOUTH DAILY AT BEDTIME TAKE ONE TABLET BY MOUTH DAILY AT BEDTIME SOLD: 05/28/2020 [facility] 100 mg 04/24/2020 12:00:00 AM EDT tablet 30 TAKE ONE TABLET BY MOUTH DAILY AT BEDTIME TAKE ONE TABLET BY MOUTH DAILY AT BEDTIME SOLD: 04/25/2020 [facility] 25 mg 04/02/2020 12:00:00 AM EDT tablet 42 TAKE 1 TABLET BY MOUTH AT BEDTIME FOR 7 DAYS, THEN TAKE 2 TABLETS AT BEDTIME FOR 7 DAYS THEN TAKE 3 TABLETS AT BEDTIME TAKE 1 TABLET BY MOUTH AT BEDTIME FOR 7 DAYS, THEN TAKE 2 TABLETS AT BEDTIME FOR 7 DAYS THEN TAKE 3 TABLETS AT BEDTIME SOLD: 04/03/2020 [facility] 150 mg 02/01/2020 12:00:00 AM EDT tablet 1 TAKE 1 TABLET BY MOUTH DAILY FOR 1 DAY TAKE 1 TABLET BY MOUTH DAILY FOR 1 DAY SOLD: 02/02/2020 [facility] 50 mcg/actuation 01/18/2020 12:00:00 AM EDT spray,suspension 16 SPRAY 1 SPRAY IN EACH NOSTRIL ONCE A DAY SPRAY 1 SPRAY IN EACH NOSTRIL ONCE A DAY SOLD: 04/03/2020 [facility] 50 mcg/actuation 01/18/2020 12:00:00 AM EDT spray,suspension 16 SPRAY 1 SPRAY IN EACH NOSTRIL ONCE A DAY SPRAY 1 SPRAY IN EACH NOSTRIL ONCE A DAY SOLD: 06/06/2020 [facility] 50 mcg/actuation 01/18/2020 12:00:00 AM EDT spray,suspension 16 SPRAY 1 SPRAY IN EACH NOSTRIL ONCE A DAY SPRAY 1 SPRAY IN EACH NOSTRIL ONCE A DAY SOLD: 02/02/2020 [facility] 100 mg 11/09/2019 12:00:00 AM EDT capsule 10 TAKE 1 CAPSULE BY MOUTH TWO TIMES A DAY WITH FOOD OR MILK FOR 5 DAYS TAKE 1 CAPSULE BY MOUTH TWO TIMES A DAY WITH FOOD OR MILK FOR 5 DAYS SOLD: 11/10/2019 [facility] NITROFURANTOIN, MACROCRYSTALS 100 MG Ora l Capsule Nitrofurantoin Macrocrystal 100 MG Nitrofurantoin Macrocrystal 100 MG 11/09/2019 12:00:00 AM EDT active 1 capsule with food or milk eCW1 ([facility]) Hydroxyzine Hydrochloride 50 MG Oral Tablet HydrOXYzin e HCl 50 MG HydrOXYzine HCl 50 MG 10/26/2019 12:00:00 AM EDT active 1 tablet as needed eCW1 ([facility]) 10 mg 10/26/2019 12:00:00 AM EDT tablet 30 TAKE ONE TABLET BY MOUTH EVERY MORNING TAKE ONE TABLET BY MOUTH EVERY MORNING SOLD: 11/22/2019 [facility] 10 mg 10/26/2019 12:00:00 AM EDT tablet 30 TAKE ONE TABLET BY MOUTH EVERY MORNING TAKE ONE TABLET BY MOUTH EVERY MORNING SOLD: 12/28/2019 [facility] Hydroxyzine Hydrochloride 50 MG Oral Tablet HydrOXYzin e HCl 50 MG HydrOXYzine HCl 50 MG 10/26/2019 12:00:00 AM EDT 1.0 {tablet_as_needed} active HydrOXYzine HCl 50 MG eCW1 ([facility]) Hydroxyzine Hydrochloride 50 MG Oral Tablet HydrOXYzin e HCl 50 MG HydrOXYzine HCl 50 MG 10/26/2019 12:00:00 AM EDT 1.0 {tablet_as_needed} active HydrOXYzine HCl 50 MG eCW1 ([facility]) Hydroxyzine Hydrochloride 50 MG Oral Tablet HydrOXYzin e HCl 50 MG HydrOXYzine HCl 50 MG 10/26/2019 12:00:00 AM EDT 1.0 {tablet_as_needed} active HydrOXYzine HCl 50 MG eCW1 ([facility]) Hydroxyzine Hydrochloride 50 MG Oral Tablet HydrOXYzin e HCl 50 MG HydrOXYzine HCl 50 MG 10/26/2019 12:00:00 AM EDT active 1 tablet as needed eCW1 ([facility]) Paroxetine 10 MG Oral Tablet [Paxil] Paxil 10 MG Paxil 10 MG 10/26/2019 12:00:00 AM EDT active 1 tablet in the morning eCW1 ([facility]) 10 mg 10/26/2019 12:00:00 AM EDT tablet 30 TAKE ONE TABLET BY MOUTH EVERY MORNING TAKE ONE TABLET BY MOUTH EVERY MORNING SOLD: 10/26/2019 [facility] Hydroxyzine Hydrochloride 50 MG Oral Tablet HydrOXYzin e HCl 50 MG HydrOXYzine HCl 50 MG 10/26/2019 12:00:00 AM EDT 1.0 {tablet_as_needed} active HydrOXYzine HCl 50 MG eCW1 ([facility]) Paroxetine 10 MG Oral Tablet [Paxil] Paxil 10 MG Paxil 10 MG 10/26/2019 12:00:00 AM EDT active 1 tablet in the morning eCW1 ([facility]) 50 mg 10/26/2019 12:00:00 AM EDT tablet 120 TAKE ONE TABLET BY MOUTH EVERY 6 HOURS NEEDED TAKE ONE TABLET BY MOUTH EVERY 6 HOURS NEEDED SOLD: 10/26/2019 [facility] Hydroxyzine Hydrochloride 50 MG Oral Tablet HydrOXYzin e HCl 50 MG HydrOXYzine HCl 50 MG 10/26/2019 12:00:00 AM EDT 1.0 {tablet_as_needed} active HydrOXYzine HCl 50 MG eCW1 ([facility]) 20 mg 08/19/2019 12:00:00 AM EST tablet 5 TAKE ONE TABLET BY MOUTH EVERY DAY FOR 5 DAYS TAKE ONE TABLET BY MOUTH EVERY DAY FOR 5 DAYS SOLD: 08/19/2019 [facility] Oseltamivir 75 MG Oral Capsule OSELTAMIVIR PHOSPHATE 08/19/2019 12:00:00 AM EST capsule 10 TAKE ONE CAPSULE BY MOUTH TWICE A DAY FOR 5 DAYS TAKE ONE CAPSULE BY MOUTH TWICE A DAY FOR 5 DAYS SOLD: 08/19/2019 [facility] Isibloom 28 Day Pack 0.15-0.03 mg DESOGESTREL-ETHINYL ESTRAD IOL 03/05/2019 12:00:00 AM EDT tablet 84 TAKE ONE TABLET BY MOUTH EVERY DAY TAKE ONE TABLET BY MOUTH EVERY DAY SOLD: 11/22/2019 [facility] Isibloom 28 Day Pack 0.15-0.03 mg DESOGESTREL-ETHINYL ESTRAD IOL 03/05/2019 12:00:00 AM EDT tablet 84 TAKE ONE TABLET BY MOUTH EVERY DAY TAKE ONE TABLET BY MOUTH EVERY DAY SOLD: 02/02/2020 [facility] 0.15-0.03 mg 03/05/2019 12:00:00 AM EDT tablet 84 TAKE ONE TABLET BY MOUTH EVERY DAY TAKE ONE TABLET BY MOUTH EVERY DAY SOLD: 08/29/2019 [facility] 50 mcg/actuation 01/12/2019 12:00:00 AM EDT spray,suspension 16 SPRAY ONE SPRAY IN EACH NOSTRIL ONCE A DAY SPRAY ONE SPRAY IN EACH NOSTRIL ONCE A DAY SOLD: 07/21/2019 [facility] 50 mcg/actuation 01/12/2019 12:00:00 AM EDT spray,suspension 16 SPRAY ONE SPRAY IN EACH NOSTRIL ONCE A DAY SPRAY ONE SPRAY IN EACH NOSTRIL ONCE A DAY SOLD: 09/17/2019 [facility] 50 mcg/actuation 01/12/2019 12:00:00 AM EDT spray,suspension 16 SPRAY ONE SPRAY IN EACH NOSTRIL ONCE A DAY SPRAY ONE SPRAY IN EACH NOSTRIL ONCE A DAY SOLD: 11/22/2019 [facility] Insurance Providers Payer name Policy type / Coverage type Policy ID Covered constitution party ID Covered constitution party's relationship to hyl[place] Policy [place] Plan Information [employer] [place]/307 [id number] SP [id number] [employer] [place]/307 [id number] SP [id number] SELF PAY ONLY [id number] SP [id number] BCBS Excell[place] Adam [id number] self [id number] EXCELLUS BCBS B [id number] S [id number] [employer] [place] PPO 302/307 [id number] SP [id number] ANSI-Medicaid [id number] ANSI-Commercial [id number] ANSI-Commercial [id number] ANSI-Medicaid [id number] ANSI-Medicaid [id number] ANSI-Commercial [id number] SELF PAY UNAVAILABLE SP UNAVAILA BLE UN COMMUNITY PLAN MCDO [id number] SP [id number] [facility] COMMUNITY PLAN MCDO [id number] SP [id number] [facility] Andriy/MCR Health Maintenance Organization (HMO) [id number] Self [id number] [facility](MCA[facility]) O [id number] S [id number] [facility] COMMUNITY PLAN [facility] [id number] SP [id number] [facility] O [id number] S [id number] [facility] [id number] SP [id number] [facility] [id number] SP [id number] [facility] COMMUNITY PLAN [facility] [id number] SP [id number] MEDICAID [id number] SP [id number] Problems, Conditions, and Diagnoses Code Display Name Description Problem Type Effective Dates Data Source(s) J30.89 [id number] Non-seasonal allergic rhinitis, unspecifi ed trigger Problem 06/17/2020 12:00:00 AM EST eCW1 ([facility]) K58.0 [id number] Irritable bowel syndrome with diarrhea Pr oblem 10/26/2019 12:00:00 AM EDT eCW1 ([facility]) K58.0 [id number] Irritable bowel syndrome with diarrhea Pr oblem 10/26/2019 12:00:00 AM EDT eCW1 ([facility]) Surgeries/Procedures Procedure Description Date Indications Data Source(s) CVR Chemical Equipment Controller.Svc. STI / H 05/30/2020 12:00:00 AM EST - 05/30/2020 12:00:00 AM EST [facility] ([facility]) CVR Chemical Equipment Controller.Svc. Other 05/30/2020 12:00:00 AM EST - 2019 12:00:00 AM EST [facility] ([facility]) CVR Chemical Equipment Controller.Svc. Contraceptive 05/30/2020 12 :00:00 AM EST - 05/30/2020 12:00:00 AM EST [facility] ([facility]) CVR Med.Svc. Abdominal Palp. 05/30/2020 12:00:00 AM EST - 05/30/2020 12:00:00 AM EST [facility] ([facility]) CVR Med.Svc. Breast Exam 05/30/2020 12:0 0:00 AM EST - 05/30/2020 12:00:00 AM EST [facility] ([facility]) CVR Med.Svc. Heart/Lung [place] 05/30/2020 12:00:00 AM EST - 05/30/2020 12:00:00 AM EST [facility] ([facility]) CVR Med.Svc. Thyroid Palp. 05/30/2020 12 :00:00 AM EST - 05/30/2020 12:00:00 AM EST [facility]Gen ([facility]) CVR Med.Svc. Height/Weight 05/30/2020 12 :00:00 AM EST - 05/30/2020 12:00:00 AM EST [facility]Gen ([facility]) CVR Blood Pressure 05/30/2020 12:00:00 AM EST - 2019 12:00:00 AM EST [facility]Gen ([facility]) HCS Without Test 05/30/2020 12:00:00 AM EST - 05/30/20 20 12:00:00 AM EST [facility] ([facility]) PREV VISIT, EST, AGE 18-39 05/30/2020 12 :00:00 AM EST - 05/30/2020 12:00:00 AM EST [facility]Gen ([facility]) Results ID Date Data Source [id number] 09/13/2020 09:00:00 AM EST [facility] Name Value Range Interpretation Code Description Data Audrey rce(s) Supporting Document(s) SARS coronavirus 2 RNA Not Detected [facility] This lab was ordered by [facility] and reported by [facility]. ID Date Data Source CBC - Complete Blood Count 09/08/2020 12:00:00 AM EST eCW1 ( [facility]) Name Value Range Interpretation Code Description Data Audrey rce(s) Supporting Document(s) 7.2 4.0-10.0 WHITE BLOOD COUNT eCW1 ([facility]) 87.1 80.0-96.0 MEAN CORPUSCULAR VOLUME e CW1 ([facility]) 39.3 36.0-47.0 HEMATOCRIT eCW1 ([facility]) 4.51 4.00-5.40 RED BLOOD COUNT eCW1 ([facility]) 12.5 12.0-15.5 HEMOGLOBIN eCW1 ([facility]) 31.8 32.0-36.5 MEAN CORPUSCULAR HGB CONC eCW1 ([facility]) 316 150-450 PLATELET COUNT, AUTOMATED eCW1 ([facility]) 27.7 27.0-33.0 MEAN CORPUSCULAR HEMOGLOB IN eCW1 ([facility]) 13.4 11.5-14.5 RED CELL DISTRIBUTION WID TH eCW1 ([facility]) ID Date Data Source [id number] 08/10/2020 12:00:00 AM EST [facility] Name Value Range Interpretation Code Description Data Audrey rce(s) Supporting Document(s) SARS-CoV-2 (COVID-19) RNA [Presence] in Respiratory specimen by NURIA with probe detection Not Detected [facility] This lab was ordered by [facility] and reported by [employer] ID Date Data Source [id number] 06/30/2020 12:00:00 AM EST [facility] Name Value Range Interpretation Code Description Data Audrey rce(s) Supporting Document(s) 2019-nCoV RNA XXX NURIA+probe-Imp [facility] This lab was ordered by [facility] and reported by [employer] ID Date Data Source TOTAL IRON BINDING CAPACIT 10/26/2019 12:00:00 AM EDT eCW1 ( [facility]) Name Value Range Interpretation Code Description Data Audrey rce(s) Supporting Document(s) 430 250-450 TOTAL IRON BINDING CAPACI TY eCW1 ([facility]) 55 50-170 IRON (FE) eCW1 ([facility]) 12.8 13.2-45.0 PERCENT SATURATION eCW1 ([facility]) ID Date Data Source FERRITIN 10/26/2019 12:00:00 AM EDT eCW1 ([facility]) Name Value Range Interpretation Code Description Data Audrey rce(s) Supporting Document(s) 39 8-252 FERRITIN eCW1 ([facility]) ID Date Data Source Comprehensive Metabolic Profile (CMP) 10/26/2019 12:00:00 AM EDT eCW1 ([facility]) Name Value Range Interpretation Code Description Data Audrey rce(s) Supporting Document(s) 90 70-100 GLUCOSE, FASTING eCW1 ([facility]) 12 7-18 BLOOD UREA NITROGEN eCW1 ([facility]) 141 136-145 SODIUM LEVEL eCW1 ([facility]) 0.69 0.55-1.30 CREATININE FOR GFR eCW1 ([facility]) > 60.0 >60 GLOMERULAR FILTRATION RATE eCW 1 ([facility]) 108 98-107 CHLORIDE LEVEL eCW1 ([facility]) 27 21-32 CARBON DIOXIDE LEVEL eCW1 (Critical access hospital) 4.2 3.5-5.1 POTASSIUM SERUM eCW1 ([facility]) 9.2 8.5-10.1 CALCIUM LEVEL eCW1 ([facility]) 21 12-78 ALT/SGPT eCW1 ([facility]) 94 45-117 ALKALINE PHOSPHATASE eCW1 (Critical access hospital) 12 7-37 AST/SGOT eCW1 ([facility]) 0.3 0.2-1.0 BILIRUBIN,TOTAL eCW1 ([facility]) 0.88 1.00-1.93 ALBUMIN/GLOBULIN RATIO eCW1 ([facility]) 3.8 3.2-5.2 ALBUMIN eCW1 ([facility]) 8.1 6.4-8.2 TOTAL PROTEIN eCW1 ([facility]) Procedure Social History Code Duration Value Status Description Data Source(s ) Smoking 09/08/2020 12:00:00 AM EST Never Smoker completed Never S moker eCW1 ([facility]) Smoking 08/01/2020 12:00:00 AM EST Never Smoker completed Never S moker eCW1 ([facility]) Smoking 08/01/2020 12:00:00 AM EST Never Smoker completed Never S moker eCW1 ([facility]) Smoking 07/15/2020 12:00:00 AM EST Never Smoker completed Never S moker eCW1 ([facility]) Smoking 07/15/2020 12:00:00 AM EST Never Smoker completed Never S moker eCW1 ([facility]) Smoking 05/30/2020 12:00:00 AM EST Never smoker completed Never s moker NextGen ([facility]) Vital Signs ID Date Data Source UNK Name Value Range Interpretation Code Description Data Source(s) Body surface area Derived from formula 1.90 m2 1.90 m2 [facility] ([facility]) Body weight 83.462 kg 83.462 kg [facility] ([facility]) [place] body weight 120 [lb_av] 120 [lb_av] [facility] Body mass index (BMI) [Ratio] 31.1 kg/m2 31.1 k g/m2 [facility] ([facility]) Body weight 184.00 [lb_av] 184.00 [lb_av] [facility] Body height 64.5 [in_i] 64.5 [in_i] [facility] ([facility]) 5'4.50" Respiratory rate 16 /min 16 /min [facility] ( [facility]) Heart rate 80 /min 80 /min [facility] ([facility]) Diastolic blood pressure 84 mm[Hg] 84 mm[Hg] [facility] ([facility]) Systolic blood pressure 118 mm[Hg] 118 mm[Hg] M EDENT ([facility], ) Diastolic blood pressure 70 mm[Hg] 70 mm[Hg] eCW1 ([facility]) Systolic blood pressure 120 mm[Hg] 120 mm[Hg] e CW1 ([facility]) Body temperature 96.8 [degF] 96.8 [degF] eCW1 ( [facility]) Respiratory rate 20 /min 20 /min eCW1 ([facility]) Heart rate 118 /min 118 /min eCW1 ([facility]) Body mass index (BMI) [Ratio] 30.45 kg/m2 30.45 kg/m2 eCW1 ([facility]) Body height 65 [in_i] 65 [in_i] eCW1 ([facility]) Body weight 183 [lb_av] 183 [lb_av] eCW1 ([facility]) Diastolic blood pressure 89 mm[Hg] 89 mm[Hg] eCW1 ([facility]) Systolic blood pressure 112 mm[Hg] 112 mm[Hg] e CW1 ([facility]) Body temperature 99 [degF] 99 [degF] eCW1 ([facility]) Respiratory rate 20 /min 20 /min eCW1 ([facility]) Heart rate 101 /min 101 /min eCW1 ([facility]) Body mass index (BMI) [Ratio] 31.45 kg/m2 31.45 kg/m2 eCW1 ([facility]) Body height 65 [in_i] 65 [in_i] eCW1 ([facility]) Body weight 189 [lb_av] 189 [lb_av] eCW1 ([facility]) Diastolic blood pressure 70 mm[Hg] 70 mm[Hg] eCW1 ([facility]) Systolic blood pressure 120 mm[Hg] 120 mm[Hg] e CW1 ([facility]) Body temperature 98 [degF] 98 [degF] eCW1 ([facility]) Respiratory rate 20 /min 20 /min eCW1 ([facility]) Heart rate 109 /min 109 /min eCW1 ([facility]) Body mass index (BMI) [Ratio] 31.12 kg/m2 31.12 kg/m2 eCW1 ([facility]) Body height 65 [in_i] 65 [in_i] eCW1 ([facility]) Body weight 187 [lb_av] 187 [lb_av] eCW1 ([facility]) Body mass index (BMI) [Ratio] 30.69 kg/m2 Overweight 30.69 kg/m2 NextGen ([facility]) Diastolic blood pressure 62 mm[Hg] 62 mm[Hg] NextGen ([facility]) Systolic blood pressure 122 mm[Hg] 122 mm[Hg] N extGen ([facility]) Body weight 81.102 kg 81.102 kg NextGen ([facility]) Body height 162.56 cm 162.56 cm NextGen ([facility]) Body surface area Derived from formula 1.92 m2 1.92 m2 MEDENT ([facility], ) Body weight 85.730 kg 85.730 kg [facility] ([facility], ) [place] body weight 120 [lb_av] 120 [lb_av] MEDEN T ([facility], ) Body mass index (BMI) [Ratio] 31.9 kg/m2 31.9 k g/m2 MEDENT ([facility], ) Body weight 189.00 [lb_av] 189.00 [lb_av] MEDEN T ([facility], ) Body height 64.5 [in_i] 64.5 [in_i] MEDENT ([facility], ) 5'4.50" Body temperature 98.0 [degF] 98.0 [degF] [facility], ) Respiratory rate 16 /min 16 /min MEDENT ( [facility], ) Heart rate 76 /min 76 /min [facility], ) Diastolic blood pressure 84 mm[Hg] 84 mm[Hg] MEDENT ([facility], ) Systolic blood pressure 128 mm[Hg] 128 mm[Hg] M EDENT ([facility], ) Diastolic blood pressure 72 mm[Hg] 72 mm[Hg] eCW1 ([facility]) Systolic blood pressure 120 mm[Hg] 120 mm[Hg] e CW1 ([facility]) Body temperature 95 [degF] 95 [degF] eCW1 ([facility]) Respiratory rate 18 /min 18 /min eCW1 ([facility]) Heart rate 113 /min 113 /min eCW1 ([facility]) Body mass index (BMI) [Ratio] 36.61 kg/m2 36.61 kg/m2 eCW1 ([facility]) Body height 65 [in_us] 65 [in_us] eCW1 ([facility]) Body weight Measured 220 [lb_av] 220 [lb_av] eC W1 ([facility]) Diastolic blood pressure 70 mm[Hg] 70 mm[Hg] eCW1 ([facility]) Systolic blood pressure 122 mm[Hg] 122 mm[Hg] e CW1 ([facility]) Body temperature 96.1 [degF] 96.1 [degF] eCW1 ( [facility]) Respiratory rate 18 /min 18 /min eCW1 ([facility]) Heart rate 115 /min 115 /min eCW1 ([facility]) Body mass index (BMI) [Ratio] 36.44 kg/m2 36.44 kg/m2 eCW1 ([facility]) Body height 65 [in_us] 65 [in_us] eCW1 ([facility]) Body weight Measured 219 [lb_av] 219 [lb_av] eC W1 ([facility]) Patient Treatment Plan of Care Planned Activity Planned Date Details Description Data Source (s) Fluconazole 150 MG Oral Tablet 08/04/2020 12:00:00 AM EST eCW1 ([facility]) Fluconazole 150 MG Oral Tablet 08/04/2020 12:00:00 AM EST eCW1 ([facility]) Ketotifen 0.25 MG/ML Ophthalmic Solution [Zaditor] 06/17/2020 12 :00:00 AM EST eCW1 ([facility]) cetirizine hydrochloride 10 MG Oral Tablet 06/17/2020 12:00:[address] eCW1 ([facility]) [place] 0.15 mg-0.03 mg tablet 05/30/2020 12:00:00 AM EST NextGen ([facility]) [place] 0.15 mg-0.03 mg tablet 05/30/2020 12:00:00 AM EST NextGen ([facility]) [place] 0.15 mg-0.03 mg tablet 05/05/2020 12:00:00 AM EDT [facility]Gen ([facility]) NITROFURANTOIN, MACROCRYSTALS 100 MG Oral Capsule 11/09/2019 12: 00:00 AM EDT eCW1 ([facility]) Hydroxyzine Hydrochloride 50 MG Oral Tablet 10/26/2019 12:00:00 AM EDT eCW1 ([facility]) Hydroxyzine Hydrochloride 50 MG Oral Tablet 10/26/2019 12:00:00 AM EDT eCW1 ([facility]) Hydroxyzine Hydrochloride 50 MG Oral Tablet 10/26/2019 12:00:00 AM EDT eCW1 ([facility]) Paroxetine 10 MG Oral Tablet [Paxil] 10/26/2019 12:00:00 AM EDT eCW1 ([facility]) Hydroxyzine Hydrochloride 50 MG Oral Tablet 10/26/2019 12:00:00 AM EDT eCW1 ([facility])
--- OUTSIDE RECORDS SUMMARY | 2020-09-18 09:13 | CCD ---
Author Author [facility] Organization [facility] Address Unknown Phone Unavailable Care Team Providers Care Campaign Associate Name Role Phone Phoebe Schmidt Unavailable PROBLEMS Type Condition ICD9-CM Code [id number] Code Onset Dates Condition S tatus SNOMED Code Notes Problem Irritable bowel syndrome with diarrhea K58.0 A ctive 648875385 Problem Non-seasonal allergic rhinitis, unspecified trigger J30.89 Active 87451953 Problem Other chronic pain G89.29 Active 07149461 Problem Intermittent explosive disorder F63.81 Active 94603308 Problem Seasonal allergies J30.2 Active 160937988 Problem Anxiety F41.9 Active 37261958 ALLERGIES Allergen (clinical drug ingredient) Drug/Non Drug Allergy do cumented on EMR Reaction Allergy Type Onset Date Status Seasonale watery eyes sneezing nasel congestion Drug Adolfo rgy Active ENCOUNTERS from 1989 to 2020-07-15 Encounter Location Date Provider Diagnosis [address] [address] Jun, Phoebe Schmidt IMMUNIZATIONS No Information SOCIAL HISTORY Tobacco Use: [...] REASON FOR REFERRAL No Information VITAL SIGNS No information MEDICATIONS Medication SIG (Take, Route, Frequency, Duration) [...] Information RESULTS No Results REASON FOR VISIT change in mole MEDICAL (GENERAL) HISTORY Type Description Date Medical History Anxiety, intermittent explosive disorder - [facility] Medical History Environmental allergies Medical History PMS with diarrhea and vomiting - on OCPs Surgical History Appendectomy Surgical History Tonsillectomy with adenoidectomy Hospitalization History surgery related Goals Section No Information Health Concerns No Information MEDICAL EQUIPMENT No Information MENTAL STATUS No Information FUNCTIONAL STATUS No Information ASSESSMENTS No Information PLAN OF TREATMENT Next Appt Details Provider Name:Phoebe Schmidt, 2020-08-01 10:00:00 AM, [address] [place] [address], [phone], Provider Name:Phoebe Schmidt, 2020-11-12 10:30:00 AM, [address] [place] [address], [phone], Insurance Providers Payer Name Payer Address Payer Phone Insured Name Patient Relati onship to Insured Coverage Start Date Coverage End Date TICO GARCIA PPO [phone] [facility] [place] [id number] GREGORY LAWSON
--- OUTSIDE RECORDS SUMMARY | 2020-09-18 09:13 | CCD ---
Author Author [facility] Organization [facility] Address Unknown Phone Unavailable Care Team Providers Care Supervising Nurse Name Role Phone Phoebe Schmidt Unavailable PROBLEMS Type Condition ICD9-CM Code [id number] Code Onset Dates Condition S tatus SNOMED Code Notes Problem Irritable bowel syndrome with diarrhea K58.0 A ctive 636668542 Problem Non-seasonal allergic rhinitis, unspecified trigger J30.89 Active 31343047 Problem Other chronic pain G89.29 Active 48549763 Problem Intermittent explosive disorder F63.81 Active 59616852 Problem Seasonal allergies J30.2 Active 098380316 Problem Anxiety F41.9 Active 51949630 ALLERGIES Allergen (clinical drug ingredient) Drug/Non Drug Allergy do cumented on EMR Reaction Allergy Type Onset Date Status Seasonale watery eyes sneezing nasel congestion Drug Adolfo rgy Active ENCOUNTERS from 1989 to 2020-08-05 Encounter Location Date Provider Diagnosis [address] [address] Jul, Phoebe Schmidt IMMUNIZATIONS No Information SOCIAL HISTORY [...] Information RESULTS No Results REASON FOR VISIT yeast infection MEDICAL (GENERAL) HISTORY Type Description Date Medical History Anxiety, intermittent explosive disorder - [facility] Medical History Environmental allergies Medical History PMS with diarrhea and vomiting - on OCPs Surgical History Appendectomy Surgical History Tonsillectomy with adenoidectomy Hospitalization History surgery related Goals Section No Information Health Concerns No Information MEDICAL EQUIPMENT No Information MENTAL STATUS No Information FUNCTIONAL STATUS No Information ASSESSMENTS No Information PLAN OF TREATMENT Medication Medication Name Sig Start Date Stop Date HydrOXYzine HCl 50 MG 1 tablet as needed Orally every 6 hrs for 30 Days Oct, Fluconazole 150 MG 1 tablet Orally for 1 days Jul, Next Appt Details Provider Name:Phoebe Cash [place], 2020-11-12 10:30:00 AM, [address] [place], [phone], Insurance Providers Payer Name Payer Address Payer Phone Insured Name Patient Relati onship to Insured Coverage Start Date Coverage End Date TICO GARCIA PPO [phone] [facility] [employer] [facility] [place] [address] GREGORY LAWSON
[2020-09-18] MEDS ORDERED: SCOPOLAMINE 1MG TRANSDERMAL PATCH TOP ONE (10:00)
[2020-09-18] MEDS ORDERED: ROCURONIUM BROMIDE 50 MG/5 ML VIAL As Ordered ONE ×2 (12:23→14:29)
[2020-09-18] MEDS ORDERED: LIDOCAINE 2% 100MG/5ML SDV (FOR ANES.) As Ordered ONE (12:23)
[2020-09-18] MEDS ORDERED: fentaNYL 250 MCG/5 ML INJECTION (J3010) As Ordered ONE (12:23)
[2020-09-18] MEDS ORDERED: ONDANSETRON 4MG/2ML VIAL As Ordered ONE ×2 (12:23→16:50)
[2020-09-18] MEDS ORDERED: propofoL 200 MG/20 ML VIAL As Ordered ONE (12:23)
[2020-09-18] MEDS ORDERED: dexameTHASONE 4 MG/ML 1ML VIAL (J1100 PER 1MG) As Ordered ONE (12:23)
[2020-09-18] MEDS ORDERED: MIDAZOLAM INJ 2MG/2ML VIAL (J2250 PER 1MG) As Ordered ONE (12:24)
[2020-09-18] MEDS ORDERED: BACITRACIN PWD 50,000 UNITS VIAL As Ordered ONE (13:11)
[2020-09-18] MEDS ORDERED: BUPIVACAINE LIPOSOME/PF 1.3% 20ML VIAL (13.3MG/ML)(EXPAREL)(C9290 PER1MG) As Ordered ONE (13:11)
[2020-09-18] MEDS ORDERED: SUGAMMADEX SODIUM 500 MG/5 ML VIAL (BRIDION) As Ordered ONE (14:30)
[2020-09-18] MEDS ORDERED: ACETAMINOPHEN 1000MG 100ML IV BTL (OFIRMEV) (J0131 PER 10MG) As Ordered ONE (14:30)
[2020-09-18] MEDS ORDERED: HYDROmorphone HCL 2 MG/ML 1ML VIAL (J1170) As Ordered ONE (14:31)
[2020-09-18] MEDS ORDERED: ePHEDrine SULFATE 25 MG/5 ML(5MG/ML) SYRINGE As Ordered ONE (14:49)
[2020-09-18] MEDS ORDERED: METOCLOPRAMIDE INJ 10MG/2ML VIAL (J2765 PER 1) As Ordered ONE (15:16)
[2020-09-18] MEDS ORDERED: LACRILUBE (AKWA TEARS) OPHTH OINT 3.5 GM As Ordered ONE (15:44)
--- NOTE | 2020-09-18 16:37 | POST-OPPD ---
Postoperative Procedure Note Date Of Procedure: Sep 18, 2020 PREOPERATIVE DIAGNOSIS: Bilateral breast hypertrophy POSTOPERATIVE DIAGNOSIS: same FINDINGS: Large breasts PROCEDURE: Bilateral breast reduction SURGEON: Dr Joseph ANESTHESIA: General SPECIMENS: Right breast 711 gm, Left breast 718 gm ESTIMATED BLOOD LOSS: 100 cc REPLACED: none DRAINS: 10 mm AMELIA x 2 COMPLICATIONS: none POSTOPERATIVE CONDITION: stable ELDA JOSEPH DO Sep 18, 2020 16:37
--- NOTE | 2020-09-18 16:37 | ROOPDOC ---
[facility] Report Of Operation Report of Operation DATE OF PROCEDURE: 09/18/20 PREOPERATIVE DIAGNOSIS: Bilateral breast hypertrophy POSTOPERATIVE DIAGNOSIS: same FINDINGS: Large breasts PROCEDURE: Bilateral breast reduction SURGEON: Dr Joseph ANESTHESIA: General SPECIMENS: Right breast 711 gm, Left breast 718 gm ESTIMATED BLOOD LOSS: 100 cc REPLACED: none DRAINS: 10 mm AMELIA x 2 COMPLICATIONS: none POSTOPERATIVE CONDITION: stable DESCRIPTION OF PROCEDURE: This is a 30-year-old female who upper back and neck pain worsened by large breasts. She wears 36 triple D bra. She is scheduled for bilateral breast reduction. Risks, benefits, and alternatives were discussed with the patient in detail, and she is ready to proceed. The day of surgery, she was marked in the upright position and informed consent was obtained. She measured 34.5 cm on the right 33.5 cm on the left from sternal notch to nipple, IMF at 23 cm bilaterally. She was brought into the operating room and placed in the supine position. Preoperative antibiotics and 5000 units heparin subcutaneous were given. Sequential pneumatic stocking were placed on the lower calves. General anesthesia was induced. She was prepped and draped in the usual sterile fashion. We started our procedure on the right side. Her nipple areolar complex was outlined 42 mm in diameter, and the patient was marked according superior medial pedicle. We started our incision by scoring the nipple areolar complex area, and then dissection was continued until the inferior lateral portion of the breast was resected. Hemostasis was obtained using electrocautery. The pedicle was de- epithelialized using Mackey scissors, good perfusion to the nipple at all times. Wound was irrigated with Bacitracin solution. We used Exparel 6 cc for local anesthesia to infiltrate in the Pectoralis muscle as well as the breast tissue. Than pedicle was turned superior to its new location at 23 cm from sternal notch. The mound was re-created using conforming 0 Vicryl sutures. Pillars were closed with interrupted 3-0 Monocryl sutures. The vertical limb was 7 cm. Excess tissue inferiorly was measured and resected, creating the horizontal scar. Nipple area complex was brought into view through the new opening and sutured in place with 3-0 and 4-0 Monocryl sutures and a 5-0 plain. A 10 mm Jett-Cortez drain was placed through the lateral portion of the horizontal incision. Then we turned our attention to the left side. Mirror procedure was carried out. Again, resection was done according to superior-medial pedicle using electrocautery and PEEK cautery. Hemostasis was obtained. The pedicle was in good viable condition. Exparel was infiltrated through the pectoralis muscle and the breast tissue 6 cc. Than pedicle was turned superior to its new location at 23 cm from sternal notch. The mound was re-created using conforming 0 Vicryl sutures. Pillars were closed with interrupted 3-0 Monocryl sutures. The vertical limb was 7 cm. Excess tissue inferiorly was measured and resected, creating the horizontal scar. Nipple area complex was brought into view through the new opening and sutured in place with 3-0 and 4-0 Monocryl sutures and a 5-0 plain gut suture in interrupted fashion. A 10 mm Jett-Cortez drain was placed through the lateral portion of the horizontal incision. Remaining Exparel injected in the horizontal incision. Total Exparel use 20 cc. Resected tissue sent to pathology in two specimens right and left breast tissue. Right breast 711 grams, left breast 718 grams. Dressings were applied to vertical and horizontal incision: Prineo. Nipples areolar complex: Xeroform and a bulky dressing with a surgical bra. Patient was extubated in the operating room without difficulty and was transferred to the recovery room in stable condition. ELDA JOSEPH DO Sep 18, 2020 16:37
[2020-09-18] MEDS ORDERED: ONDANSETRON 4MG/2ML VIAL IV PRN ×2 (17:00→18:35)
[2020-09-18] MEDS ORDERED: fentaNYL 100 MCG/2 ML INJECTION (J3010) IV PRN (17:00)
[2020-09-18] MEDS ORDERED: HYDROMORPHONE HCL 0.5 MG/ 0.5 ML SYRINGE (J1170 PER 1) IV PRN (17:00)
[2020-09-18] MEDS ORDERED: METOCLOPRAMIDE INJ 10MG/2ML VIAL (J2765 PER 1) IV PRN (17:00)
[2020-09-18] MEDS ORDERED: LR 1,000 ML IV SCH (17:00)
[2020-09-18] MEDS ORDERED: oxyCODONE 5MG TAB PO PRN (17:00)
[2020-09-18 18:00] VITALS: BP 162/95
[2020-09-18 18:30] VITALS: BP 163/83
[2020-09-18] MEDS ORDERED: ACETAMINOPHEN TAB 650MG DOSE (2X325MG) PO PRN (18:35)
[2020-09-18] MEDS ORDERED: PERCOCET 5MG/325MG TAB PO PRN (18:35)
[2020-09-18] MEDS: LR 1,000 ML IV SCH (18:36)
[2020-09-18] MEDS: KETOROLAC TROMETHAMINE 10 MG TAB PO PRN (18:57)
[2020-09-18 20:00] VITALS: BP 142/67
[2020-09-18] MEDS: ceFAZolin SOD 1 GM in D5W MINI-BAG PLUS 50 ML IV SCH (22:07)
[2020-09-18] MEDS: lamoTRIgine 100MG TAB PO SCH (22:07)
[2020-09-19 01:58] VITALS: BP 115/68
[2020-09-19] MEDS: LR 1,000 ML IV SCH (02:08)
[2020-09-19 05:42] VITALS: BP 135/77
[2020-09-19] MEDS: ceFAZolin SOD 1 GM in D5W MINI-BAG PLUS 50 ML IV SCH (06:34)
[2020-09-19] MEDS: KETOROLAC TROMETHAMINE 10 MG TAB PO PRN (06:37)
[2020-09-19] MEDS: lamoTRIgine 100MG TAB PO SCH (08:49)
--- NOTE | 2020-09-19 10:38 | IPNPDOC ---
Subjective General Date Seen: Sep 19, 2020 Subject Chief Complaint/History The patient is a 30-year-old female admitted with a reason for visit of Bilateral Breast Hypertrophy. Patient status post bilateral breast reduction postop day 1. She is doing well today. Pain controlled. She is ambulating to the bathroom, tolerating regular diet. Current Medications Current Medications Current Medications Medications (Trade) Dose Ordered Sig/Leny Route PRN Reason Start Time Stop Time Status Last Admin Dose Admin Acetaminophen (Tylenol Tab) 650 mg Q6H PRN PO MILD PAIN (PS 1-4) 09/18/20 18:35 Cefazolin Sodium 1 gm/Dextrose 50 ml @ 100 mls/hr Q8H IV 09/18/20 22:00 09/19/20 06:34 Fentanyl Citrate (Sublimaze) 25 mcg Q5MP PRN IV PAIN LEVEL 5-10 09/18/20 17:00 09/18/20 18:00 DC Hydromorphone HCl (Dilaudid) 0.5 mg Q5MP PRN IV PAIN LEVEL 4-7 09/18/20 17:00 09/18/20 18:00 DC Ketorolac Tromethamine (ToRADol) 10 mg Q6HP PRN PO MODERATE PAIN (PS 5-7) 09/18/20 18:35 09/23/20 18:34 09/19/20 06:37 Lactated Ringer's 1,000 ml @ 75 mls/hr [id number] IV 09/18/20 18:31 09/19/20 02:08 Lactated Ringer's 1,000 ml @ 100 mls/hr Q10H IV 09/18/20 17:00 09/18/20 18:00 DC Lamotrigine (LaMICtal) 100 mg BID PO 09/18/20 21:00 09/19/20 08:49 Lidocaine HCl (LIDOCAINE 1% MDV 20ml) 0.1 ml ONCE PRN SQ DISCOMFORT BEFORE IV START 09/18/20 06:00 09/18/20 16:55 DC Metoclopramide HCl (REGLAN INJection) 10 mg Q6HP PRN IV NAUSEA OR VOMITING 09/18/20 17:00 09/18/20 17:11 DC 09/18/20 17:10 Ondansetron HCl (ZOFRAN INJection) 4 mg Q4H PRN IV NAUSEA OR VOMITING 09/18/20 18:35 Ondansetron HCl (ZOFRAN INJection) 4 mg Q4HP PRN IV NAUSEA OR VOMITING 09/18/20 17:00 09/18/20 18:00 DC 09/18/20 16:53 Oxycodone HCl (Roxicodone, Oxyir) 5 mg ASDIRECTED PRN PO PAIN LEVEL 1-4 09/18/20 17:00 09/18/20 18:00 DC 09/18/20 17:18 Oxycodone/ Acetaminophen (Percocet 5mg/ 325mg Tablet) 2 tab Q4HP PRN PO PAIN LEVEL 8-10 09/18/20 18:35 09/18/20 22:11 Allergies Coded Allergies: ENVIROMENTAL (Verified Allergy, Unknown, 09/18/20) Objective Physical Examination Examination GENERAL APPEARANCE:Patient seen, laying in bed, awake, alert, and oriented. Comfortable, in no acute distress. SKIN: Warm and moist. BREAST: Right and left soft, non-tender incisions intact. AMELIA drains:35/25 cc/24 hr. NAC: Viable, warm, symmetrical, mild post-op ecchymosis, no expanding hematoma. HEENT: Normocephalic, atraumatic. Aneta palpebral conjunctiva, anicteric sclerae. Lips and mucosa appear moist. NECK: Supple, no thyromegaly. No obvious jugular venous distention. LUNGS: Clear to auscultation bilaterally. No wheezing appreciated. HEART: No chest wall abnormalities. Regular rate and rhythm with no murmurs appr eciated. ABDOMEN: Abdomen is soft, non-tender, non-distended. EXTREMITIES: No edema identified. No calf tenderness. Vital Signs Vital Signs Date Time Temp Pulse Resp B/P (MAP) Pulse Ox O2 Delivery O2 Flow Rate FiO2 09/19/20 05:42 97.6 81 20 135/77 (96) 99 Room Air 09/18/20 20:00 2.0 I&Os I&O- Last 24 Hours up to 6 AM 09/19/20 06:00 Intake Total 2560 ml Output Total 2460 ml Balance 100 ml Laboratory Data Labs 24H Laboratory Tests 2 09/19/20 09:52: Impression S/p bilateral breast reduction Doing well Stable for discharge Keep drains, monitor daily output. Bra support. Pain control, prescription for Percocet sent to the pharmacy. F/up plastic surgery. Plan / VTE VTE Prophylaxis Ordered?: Yes ELDA JOSEPH DO Sep 19, 2020 10:38
[2020-09-19] MEDS ORDERED: PERCOCET PO (11:56)
== END 2020-09-19 12:46 | disposition home or self-care (01) ==
LOC: M SDC 09:07 → M MS5PR 18:15 → M SDC 09-19 12:46
PROVIDERS: ATTEND Plastic Surgery Surgery of the Hand
DX: N62 Hypertrophy of breast (principal); F31.9 Bipolar disorder, unspecified; F41.9 Anxiety disorder, unspecified; Z79.899 Other long term (current) drug therapy
CPT/HCPCS: 19318; 81025; 87641; 88305; 96365; 96366; C9290; J0131; J0690; J1100; J1170; J2250; J2405; J2765; J3010

== ENCOUNTER → 2020-10-29 | Outpatient (REF) | payer BC ==
[~2020-10-29] MED LIST changes: -LIDOCAINE 1% MDV 20ML VIAL SQ PRN; -LR 1,000 ML IV ONE; +PERCOCET PO; -ceFAZolin SOD 1 GM in D5W MINI-BAG PLUS 50 ML IV ONE
== END ==
LOC: M LAB REF 11:57
PROVIDERS: ATTEND Plastic Surgery Surgery of the Hand
DX: L03.90 Cellulitis, unspecified (principal)

== ENCOUNTER 2021-04-17 16:03 | Emergency (ER) | payer OTHER, BC ==
[~2021-04-17] VITALS: Ht 165.1 cm; Wt 95.0 kg
[2021-04-17 16:04] VITALS: BP 129/72
[2021-04-17] MEDS ORDERED: RABIES VACCINE HUMAN 2.5 INTERNATIONAL UNITS/ML VIAL (90675) IM ONE (20:55)
[2021-04-17] MEDS ORDERED: RABIES IMMUNE GLOBULIN 1500 INTERNATIONAL UNIT/5ML VIAL (90375) IM ONE (20:55)
[2021-04-17] MEDS ORDERED: AUGM875T28 PO (21:39)
[2021-04-17] MEDS ORDERED: AUGMENTIN 875 MG TAB PO ONE (21:40)
== END 2021-04-17 22:27 | disposition home or self-care (01) ==
LOC: M ED 16:03
DX: S61.052A Open bite of left thumb without damage to nail, initial encounter (principal); W55.01XA Bitten by cat, initial encounter; Y92.9 Unspecified place or not applicable; Y93.9 Activity, unspecified; Y99.9 Unspecified external cause status

== ENCOUNTER 2021-04-20 20:02 | Emergency (ER) | payer BC ==
[~2021-04-20] VITALS: Ht 165.1 cm; Wt 96.5 kg
[~2021-04-20 20:02] MED LIST changes: -ISIB1TAB PO
[2021-04-20] MEDS ORDERED: ISIB1TAB PO (20:26)
[2021-04-20] MEDS ORDERED: RABIES VACCINE HUMAN 2.5 INTERNATIONAL UNITS/ML VIAL (90675) IM ONE (22:00)
[2021-04-20 22:58] VITALS: BP 121/65
== END 2021-04-20 23:01 | disposition home or self-care (01) ==
LOC: M ED 20:02
DX: S61.052D Open bite of left thumb without damage to nail, subsequent encounter (principal); W55.01XD Bitten by cat, subsequent encounter; Y92.9 Unspecified place or not applicable; Y93.9 Activity, unspecified; Y99.9 Unspecified external cause status; Z20.3 Contact with and (suspected) exposure to rabies; Z23 Encounter for immunization; Z79.899 Other long term (current) drug therapy

== ENCOUNTER → 2021-04-20 | Outpatient (REF) | payer BC ==
[~2021-04-20] MED LIST changes: +AUGM875T28 PO; +ISIB1TAB PO
== END ==
LOC: M SFHCPLAZ 13:15
PROVIDERS: ATTEND Family Medicine
DX: Z12.4 Encounter for screening for malignant neoplasm of cervix (principal)
CPT/HCPCS: 87624; G0123

== ENCOUNTER 2021-04-24 11:47 | Emergency (ER) | payer BC ==
[~2021-04-24] VITALS: Ht 165.1 cm; Wt 95.3 kg
[~2021-04-24 11:47] MED LIST changes: +ISIB1TAB PO
[2021-04-24] MEDS ORDERED: RABIES VACCINE HUMAN 2.5 INTERNATIONAL UNITS/ML VIAL (90675) IM ONE (12:30)
[2021-04-24 13:47] VITALS: BP 123/72
== END 2021-04-24 13:48 | disposition home or self-care (01) ==
LOC: M ED 11:47
DX: Z20.3 Contact with and (suspected) exposure to rabies (principal)

== ENCOUNTER 2021-05-01 11:22 | Emergency (ER) | payer BC ==
[~2021-05-01] VITALS: Ht 165.1 cm; Wt 92.8 kg
[2021-05-01] MEDS ORDERED: RABIES VACCINE HUMAN 2.5 INTERNATIONAL UNITS/ML VIAL (90675) IM ONE (11:35)
[2021-05-01 12:39] VITALS: BP 119/76
== END 2021-05-01 12:51 | disposition home or self-care (01) ==
LOC: M ED 11:22
DX: Z23 Encounter for immunization (principal)

== ENCOUNTER → 2021-07-29 | Outpatient (REF) | LOC: M LABSMTC 09:56 | PROVIDERS: ATTEND Pediatrics | DX: Z11.52 Encounter for screening for COVID-19 (principal) ==

== ENCOUNTER 2021-08-05 11:12 | Emergency (ER) | payer BC, OTHER ==
[~2021-08-05] VITALS: Ht 165.1 cm; Wt 90.9 kg
[2021-08-05] MEDS ORDERED: EMOQTAB PO (11:25)
[2021-08-05] MEDS ORDERED: CEFD300C41 PO (13:12)
[2021-08-05] MEDS ORDERED: ZITHTAB PO (13:12)
[2021-08-05 13:47] VITALS: BP 136/82
== END 2021-08-05 14:12 | disposition home or self-care (01) ==
LOC: M ED 11:12
DX: U07.1 COVID-19 (principal); J12.82 Pneumonia due to coronavirus disease 2019; Z79.899 Other long term (current) drug therapy

== ENCOUNTER 2021-08-10 12:11 | Emergency (ER) | payer OTHER ==
[~2021-08-10] VITALS: Ht 165.1 cm; Wt 88.6 kg
[~2021-08-10 12:11] MED LIST changes: +CEFD300C41 PO; +EMOQTAB PO; +ZITHTAB PO
[2021-08-10] MEDS ORDERED: NS 1,000 ML IV ONE (12:40)
[2021-08-10 13:09] LABS: BASO % 0.2 % (0.0-1.0); EOS # 0.1 10^3/uL (0.0-0.5); EOS % 0.6 % (0.0-3.0); HEMATOCRIT 39.2 % (36.0-47.0); HEMOGLOBIN 12.9 g/dl (12.0-15.5); LYMPH # 1.5 10^3/uL (1.5-5.0); LYMPH % 15.8 % (24.0-44.0); MEAN CORPUSCULAR HEMOGLOBIN 26.5 pg (27.0-33.0); MEAN CORPUSCULAR HGB CONC 32.9 g/dl (32.0-36.5); MEAN CORPUSCULAR VOLUME 80.5 fl (80.0-96.0); MONO # 0.9 10^3/uL (0.0-0.8); MONO % 9.3 % (2.0-8.0); NEUTROPHILS % 73.7 % (36.0-66.0); PLATELET COUNT, AUTOMATED 486 10^3/uL (150-450); RED BLOOD COUNT 4.87 10^6/uL (4.00-5.40); WHITE BLOOD COUNT 9.5 10^3/uL (4.0-10.0)
[2021-08-10 13:20] LABS: INR 1.02; PROTHROMBIN TIME 13.8 SECONDS (12.7-14.5)
[2021-08-10 13:29] LABS: PARTIAL THROMBOPLASTIN TIME 31.7 SECONDS (25.9-37.0)
[2021-08-10 13:38] LABS: ERYTHROCYTE SEDIMENTATION RATE 61 mm/hr (0-20)
[2021-08-10 13:41] LABS: ALBUMIN 3.5 GM/DL (3.2-5.2); ALT/SGPT 35 U/L (12-78); BILIRUBIN,DIRECT 0.1 MG/DL (0.0-0.2); BILIRUBIN,TOTAL 0.4 MG/DL (0.2-1.0); BLOOD UREA NITROGEN 6 MG/DL (7-18); CALCIUM LEVEL 9.5 MG/DL (8.5-10.1); CARBON DIOXIDE LEVEL 26 MEQ/L (21-32); CHLORIDE LEVEL 101 MEQ/L (98-107); CREATININE FOR GFR 0.52 MG/DL (0.55-1.30); GLOMERULAR FILTRATION RATE > 60.0 (>60); GLUCOSE, FASTING 92 MG/DL (70-100); POTASSIUM SERUM 3.4 MEQ/L (3.5-5.1); SODIUM LEVEL 137 MEQ/L (136-145); TOTAL PROTEIN 7.9 GM/DL (6.4-8.2)
[2021-08-10] MEDS ORDERED: ISOVUE-370 76% 100ML VIAL As Ordered ONE (13:44)
[2021-08-10] MEDS ORDERED: dexameTHASONE 20MG/5ML VIAL (J1100 PER 1MG) IV ONE (14:15)
[2021-08-10] MEDS ORDERED: ALBUTEROL 90 MCG/ACT 8GM HFA INHALER INH ONE (14:15)
[2021-08-10] MEDS ORDERED: PRED20TA PO (15:38)
[2021-08-10] MEDS ORDERED: VENTAER INH (15:38)
[2021-08-10 16:10] VITALS: BP 132/72
== END 2021-08-10 16:12 | disposition home or self-care (01) ==
LOC: M ED 12:11
DX: U07.1 COVID-19 (principal); J12.82 Pneumonia due to coronavirus disease 2019; F41.0 Panic disorder [episodic paroxysmal anxiety]; Z79.899 Other long term (current) drug therapy
CPT/HCPCS: 71275; 80048; 80076; 83605; 84702; 85025; 85610; 85652; 85730; 86140; 87040; 93971; 94640; 96361; 96374; 99284; J1100; Q9967

== ENCOUNTER → 2022-08-26 | Outpatient (CLI) | payer OTHER ==
[~2022-08-26] MED LIST changes: +PRED20TA PO; +VENTAER INH
[2022-08-26 10:55] LABS: ALBUMIN 3.9 G/DL (3.2-5.2); ALKALINE PHOSPHATASE 83 U/L (46-116); ALT/SGPT 14 U/L (7.0-40); AST/SGOT 15 U/L (<34); BILIRUBIN,TOTAL 0.2 MG/DL (0.3-1.2); BLOOD UREA NITROGEN 8 MG/DL (9-23); CALCIUM LEVEL 8.9 MG/DL (8.5-10.1); CARBON DIOXIDE LEVEL 27 MMOL/L (20-31); CHLORIDE LEVEL 106 MMOL/L (98-107); CHOLESTEROL LEVEL 204 MG/DL (<200); CHOLESTEROL RISK RATIO 3.28 (<5); CREATININE FOR GFR 0.65 MG/DL (0.55-1.30); GLOMERULAR FILTRATION RATE > 60.0 (>60); GLUCOSE, FASTING 98 MG/DL (60-100); HDL CHOLESTEROL 62.1 MG/DL (>40); LDL CHOLESTEROL 121.7 MG/DL (<100); NON-HDL-C 142 MG/DL; POTASSIUM SERUM 4.6 MMOL/L (3.5-5.1); SODIUM LEVEL 140 MMOL/L (136-145); TOTAL PROTEIN 7.1 G/DL (5.7-8.2); TRIGLYCERIDES LEVEL 101 MG/DL (<150)
[2022-08-26 10:56] LABS: BASO % 0.4 % (0.0-1.0); EOS # 0.2 10^3/uL (0.0-0.5); EOS % 2.3 % (0.0-3.0); HEMATOCRIT 39.3 % (36.0-47.0); HEMOGLOBIN 12.1 g/dl (12.0-15.5); LYMPH # 2.9 10^3/uL (1.5-5.0); LYMPH % 39.6 % (24.0-44.0); MEAN CORPUSCULAR HEMOGLOBIN 26.7 pg (27.0-33.0); MEAN CORPUSCULAR HGB CONC 30.8 g/dl (32.0-36.5); MEAN CORPUSCULAR VOLUME 86.6 fl (80.0-96.0); MONO # 0.4 10^3/uL (0.0-0.8); MONO % 5.6 % (2.0-8.0); NEUTROPHILS # 3.8 10^3/uL (1.5-8.5); NEUTROPHILS % 51.8 % (36.0-66.0); PLATELET COUNT, AUTOMATED 429 10^3/uL (150-450); RED BLOOD COUNT 4.54 10^6/uL (4.00-5.40); WHITE BLOOD COUNT 7.3 10^3/uL (4.0-10.0)
[2022-08-26 10:57] LABS: THYROID STIMULATING HORMONE 0.909 uIU/ML (0.55-4.78)
[2022-08-26 18:08] LABS: HEMOGLOBIN A1c 5.1 % (4.0-6.0)
== END ==
LOC: M PLALAB 07:45
PROVIDERS: ATTEND Physician Assistant
DX: Z00.00 Encounter for general adult medical examination without abnormal findings (principal); B37.31 Acute candidiasis of vulva and vagina; Z68.34 Body mass index [BMI] 34.0-34.9, adult

== ENCOUNTER → 2023-10-13 | Outpatient (CLI) | payer OTHER ==
[~2023-10-13] MED LIST changes: +CEFD1CAP9 PO; -CEFD300C41 PO
[2023-10-13 13:53] LABS: BASO % 0.3 % (0.0-1.0); EOS # 0.1 10^3/uL (0.0-0.5); HEMATOCRIT 40.3 % (36.0-47.0); HEMOGLOBIN 13.2 g/dl (12.0-15.5); LYMPH # 3.6 10^3/uL (1.5-5.0); LYMPH % 51.1 % (24.0-44.0); MEAN CORPUSCULAR HEMOGLOBIN 28.5 pg (27.0-33.0); MEAN CORPUSCULAR HGB CONC 32.8 g/dl (32.0-36.5); MONO # 0.5 10^3/uL (0.0-0.8); MONO % 7.4 % (2.0-8.0); NEUTROPHILS # 2.8 10^3/uL (1.5-8.5); NEUTROPHILS % 38.9 % (36.0-66.0); PLATELET COUNT, AUTOMATED 362 10^3/uL (150-450); RED BLOOD COUNT 4.63 10^6/uL (4.00-5.40); WHITE BLOOD COUNT 7.1 10^3/uL (4.0-10.0)
[2023-10-13 14:24] LABS: ALKALINE PHOSPHATASE 59 U/L (46-116); ALT/SGPT < 9 U/L (7.0-40); AST/SGOT < 8 U/L (<34); BILIRUBIN,TOTAL 0.3 MG/DL (0.3-1.2); BLOOD UREA NITROGEN 9 MG/DL (9-23); CALCIUM LEVEL 8.9 MG/DL (8.5-10.1); CARBON DIOXIDE LEVEL 27 MMOL/L (20-31); CHLORIDE LEVEL 107 MMOL/L (98-107); CHOLESTEROL LEVEL 179 MG/DL (<200); CHOLESTEROL RISK RATIO 3.87 (<5); CREATININE FOR GFR 0.67 MG/DL (0.55-1.30); GLOMERULAR FILTRATION RATE > 60.0 (>60); GLUCOSE, FASTING 80 MG/DL (60-100); HDL CHOLESTEROL 46.2 MG/DL (>40); LDL CHOLESTEROL 115.6 MG/DL (<100); NON-HDL-C 132.8 MG/DL; POTASSIUM SERUM 4.6 MMOL/L (3.5-5.1); SODIUM LEVEL 139 MMOL/L (136-145); TOTAL PROTEIN 7.3 G/DL (5.7-8.2); TRIGLYCERIDES LEVEL 86 MG/DL (<150)
== END ==
LOC: M PLALAB 11:40
PROVIDERS: ATTEND Physician Assistant
DX: Z00.00 Encounter for general adult medical examination without abnormal findings (principal)

== ENCOUNTER → 2024-05-24 | Outpatient (REF) | payer OTHER ==
[~2024-05-24] MED LIST changes: +FLUO-365; -FLUO20CA22
[2024-05-30 16:02] LABS: HPV APTIMA Not Detected (Not Detected)
== END ==
LOC: M SFHCPLAZ 08:23
PROVIDERS: ATTEND Physician Assistant
DX: Z12.4 Encounter for screening for malignant neoplasm of cervix (principal); R87.610 Atypical squamous cells of undetermined significance on cytologic smear of cervix (ASC-US)
CPT/HCPCS: 87624; G0123

== ENCOUNTER → 2025-02-04 | Outpatient (CLI) | payer OTHER ==
[~2025-02-04] MED LIST changes: -DESO1TAB26; +DESO1TAB38
[2025-02-04 12:23] LABS: FREE T4 1.05 NG/DL (0.89-1.76)
== END ==
LOC: M PLALAB 08:36
PROVIDERS: ATTEND Nurse Practitioner Family
DX: R94.6 Abnormal results of thyroid function studies (principal)

== ENCOUNTER → 2025-02-22 | Outpatient (CLI) | payer OTHER ==
[2025-02-22 10:31] LABS: PLATELET COUNT, AUTOMATED 377 10^3/uL (150-450)
[2025-02-22 10:56] LABS: CALCIUM LEVEL 9.1 MG/DL (8.5-10.1); CARBON DIOXIDE LEVEL 27 MMOL/L (20-31); CHLORIDE LEVEL 103 MMOL/L (98-107); CREATININE FOR GFR 0.69 MG/DL (0.55-1.30); GLOMERULAR FILTRATION RATE > 90.0 (>60); POTASSIUM SERUM 4.7 MMOL/L (3.5-5.1); SODIUM LEVEL 141 MMOL/L (136-145)
== END ==
LOC: M PLALAB 08:52
PROVIDERS: ATTEND Plastic Surgery
DX: Z01.812 Encounter for preprocedural laboratory examination (principal)